=== PATIENT | female | born 1975 | race Asian ===

== ENCOUNTER 2016-08-12 20:33 | Emergency (ER) | payer BC ==
[~2016-08-12] VITALS: Ht 154.9 cm; Wt 67.8 kg
[~2016-08-12 20:33] MED LIST: CHOL100010 PO; LANS30CA12 PO; SERT25TA PO
[2016-08-12 20:49] VITALS: BP 124/78; PULSE 65; TEMP 36.5; O2SAT 97; Ht 154.9 cm; Wt 67.8 kg
[2016-08-12] MEDS ORDERED: FLUV100T12 PO (21:05)
== END 2016-08-12 21:38 | disposition left against medical advice (07) ==
LOC: C.EDB 20:34 → C.EDD 21:38
DX: M79.601 Pain in right arm (principal); W10.9XXA Fall (on) (from) unspecified stairs and steps, initial encounter

== ENCOUNTER → 2016-09-11 | Outpatient (CLI) | payer BC ==
[~2016-09-11] MED LIST changes: -CHOL100010 PO; +FLUV100T12 PO; -SERT25TA PO
== END | disposition home or self-care (01) ==
LOC: C.LABSPEC 17:50
PROVIDERS: ATTEND Physician Assistant
DX: N89.8 Other specified noninflammatory disorders of vagina (principal)

== ENCOUNTER → 2017-04-10 | Outpatient (CLI) | payer BC ==
--- NOTE | 2017-04-10 15:32 | MAMMOGRAPHY REPORT ---
BILATERAL DIGITAL SCREENING MAMMOGRAM TOMOSYNTHESIS WITH CAD: 04/10/2017 CLINICAL HISTORY: Routine screening. Patient has no complaints. TECHNIQUE: Breast tomosynthesis in addition to standard 2D mammography was performed. Current study was also evaluated with a Computer Aided Detection (CAD) system. COMPARISON: Comparison is made to exam dated: 03/27/2016 mammogram - [facility]. BREAST COMPOSITION: The tissue of both breasts is heterogeneously dense, which may obscure small mas ses. FINDINGS: No suspicious masses, calcifications, or areas of architectural distortion are noted in ei ther breast. There has been no significant interval change compared to prior exams. IMPRESSION: ACR BI-RADS CATEGORY 1: NEGATIVE There is no mammographic evidence of malignancy. A 1 year screening mammogram is recommended. The pa tient will receive written notification of the results. Approximately 10% of breast cancers are not detected with mammography. A negative mammographic report should not delay biopsy if a clinically suggestive mass is present. Marya Davidson M.D. ah/:04/10/2017 14:12:43 Cumulative Effects Analyst: Yani WEAVER(Karma)(Audrey)(BD), [facility] letter sent: Normal 1/2 BI-RADS Code: ACR BI-RADS Category 1: Negative
== END | disposition home or self-care (01) ==
LOC: C.MAMM 13:41
PROVIDERS: ATTEND Nurse Practitioner Family
DX: Z12.31 Encounter for screening mammogram for malignant neoplasm of breast (principal)

== ENCOUNTER → 2017-11-27 | Outpatient (CLI) | payer OTHER ==
--- NOTE | 2017-11-27 10:02 | DIAGNOSTIC IMAGING REPORT ---
LEFT ANKLE 3 VIEWS HISTORY: Left ankle pain. COMPARISON: None. FINDINGS: There is no fracture or dislocation. Soft tissues are unremarkable. No radiopaque foreign bodies. IMPRESSION: No fractures. Electronically signed by: Bud Addison M.D. 11/27/2017 10:01 AM Dictated Date/Time: 11/27/2017 9:59 AM
--- NOTE | 2017-11-27 10:05 | DIAGNOSTIC IMAGING REPORT ---
LEG LENGTH STUDY (WHOLE LEG) CLINICAL HISTORY: leg length discrepancy. COMPARISON STUDY: None. FINDINGS: The right lower extremity measured from the superior femoral head through the tibial plafond measures 86.1 cm. The left lower extremity measured from the superior femoral head to the tibial plafond measures 86.3 cm. This is likely due to the left femur which measures approximately 2 mm longer than the right. IMPRESSION: The left lower extremity measures approximately 2 mm longer than the right. Electronically signed by: Bud Addison M.D. 11/27/2017 10:04 AM Dictated Date/Time: 11/27/2017 10:01 AM
== END | disposition home or self-care (01) ==
LOC: C.RADBC 09:21
PROVIDERS: ATTEND Nurse Practitioner Family
DX: M25.572 Pain in left ankle and joints of left foot (principal); R26.89 Other abnormalities of gait and mobility

== ENCOUNTER → 2018-03-19 | Outpatient (CLI) | payer OTHER ==
--- NOTE | 2018-03-19 13:18 | DIAGNOSTIC IMAGING REPORT ---
RIGHT SHOULDER 3 VIEWS CLINICAL HISTORY: Right shoulder pain. FINDINGS: 3 views of the right shoulder are obtained. No prior studies are available for comparison at the time of dictation. The skeletal structures are well mineralized. No fracture or dislocation is seen. The glenohumeral and acromioclavicular joints are preserved. The overlying soft tissues are within normal limits. The imaged right lung parenchyma appears clear. IMPRESSION: There is no radiographic evidence of right shoulder fracture or dislocation. Electronically signed by: Az Lombardo M.D. 03/19/2018 1:17 PM Dictated Date/Time: 03/19/2018 1:16 PM
== END | disposition home or self-care (01) ==
LOC: C.RDSM 12:49
PROVIDERS: ATTEND Family Medicine
DX: M25.511 Pain in right shoulder (principal)

== ENCOUNTER 2023-01-02 17:09 | Inpatient (IN) ==
[2023-01-02 17:57] LABS: Basophils # (auto) 0.02 K/uL (0-0.2); Basophils % (auto) 0.3 %; Eosinophils # (auto) 0.13 K/uL (0-0.50); Eosinophils % (auto) 1.8 %; Hematocrit (blood only) 41.5 % (37.0-47.0); Hemoglobin 13.9 g/dl (12.0-16.0); Immature Granulocytes # (auto) 0.02 K/uL (0.01-0.20); Immature Granulocytes % (auto) 0.3 %; Lymphocytes # (auto) 2.17 K/uL (1.2-3.4); Lymphocytes % (auto) 30.7 %; Mean Corpuscular Hemoglobin 28.8 pg (25.0-34.0); Mean Corpuscular Hgb Conc 33.5 g/dL (32.0-36.0); Mean Corpuscular Volume 86.1 fL (80.0-100.0); Mean Platelet Volume 9.4 fL (9.4-12.4); Monocytes # (auto) 0.56 K/uL (0.11-0.59); Monocytes % (auto) 7.9 %; Neutrophils # (auto) 4.17 K/uL (1.40-6.50); Platelet Count 309 K/uL (130-400); RDW Coefficient of Variation 13.5 % (11.5-14.5); RDW Standard Deviation 42.4 fL (36.4-46.3); Red Blood Count 4.82 M/uL (4.20-5.40); White Blood Count 7.07 K/ul (4.8-10.8)
[2023-01-02 18:11] LABS: Albumin Globulin Ratio 1.4 (0.9-2); Albumin Level 4.5 gm/dl (3.4-5.0); BUN Creatinine Ratio 17.6 (10-20); Bilirubin,Total 0.3 mg/dl (0.2-1.0); Calcium 9.3 mg/dl (8.6-10.3); Creatinine Clr Calc Pharmacy 76.5 ml/min; Est GFR (African American) 94.6 ml/min; Est GFR (Non-African American) 81.6 ml/min; Globulin 3.3 gm/dl (2.5-4.0); Potassium 3.9 mmol/L (3.5-5.1); Total Protein 7.8 gm/dl (6.0-8.3)
[2023-01-02 18:14] LABS: Lithium 0.2 mmol/L (0.6-1.2)
--- NOTE | 2023-01-02 18:15 | Emergency Department Note ---
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 Patient reports that she has been having increasing thoughts of self-harm for the last 2 weeks. She reports no definitive plan of trying to hurt himself. She reports no chance of . No access to firearms. No drugs or alcohol. Patient states she was referred here by her psychiatrist Dr. Curtis Ron. Home Medications Medication Instructions Recorded Confirmed Type fluvoxamine 100 mg tablet 300 mg PO QAM 02/24/19 01/02/23 History lansoprazole 30 mg capsule,delayed 30 mg PO QAM 02/24/19 09/30/21 History release (Prevacid) lamotrigine 100 mg tablet 75 mg PO BID 07/25/20 01/02/23 History (Lamictal) ergocalciferol (vitamin D2) 1,250 1,250 mcg PO WK 05/28/21 09/30/21 History mcg (50,000 unit) capsule (Vitamin D2) fluticasone propionate 50 2 spray intranasal DAILY #15.8 06/12/21 09/30/21 Rx mcg/actuation nasal grams spray,suspension temazepam 15 mg capsule (Restoril) 15 mg PO ONCE 09/30/21 09/30/21 History lithium carbonate 300 mg 300 mg PO DAILY 01/02/23 01/02/23 History tablet,extended release metformin 750 mg tablet,extended 750 mg PO BID 01/02/23 01/02/23 History release 24 hr Allergies Allergy/AdvReac Type Severity Reaction Status Date / Time No Known Drug Allergies Allergy Verified 09/30/21 09:20 Past Med/Surg History Medical History Anxiety and depression Clenching of teeth mouth guard [facility] Depressive disorder Encounter for pre-operative examination GERD (gastroesophageal reflux disease) Headache History of eating disorder History of gestational diabetes History of osteopenia History of seizure "drug induced" 2001; no issues since Iron deficiency anemia hx PTSD (post-traumatic stress disorder) Tinnitus Urge and stress incontinence Surgical History History of ankle surgery History of colonoscopy History of endometrial ablation History of esophagogastroduodenoscopy (EGD) History of surgery Perineoplasty S/P section S/P wisdom tooth extraction Family History Sister Hearing loss Mother Hearing loss Grandmother (Maternal) Hearing loss Grandmother (Paternal) Hearing loss Other No family history of adverse response to anesthesia No family history of bleeding disorder Denies family history of Ovarian cancer Breast cancer Colorectal cancer Uterine cancer Social History Smoking Status: Never smoker Second Hand Exposure: No; Do You Dip or Chew Tobacco: No; Hx Alcohol Use: No Hx Substance Use: No Preferred Language: Bulgarian Communication Ability: Effective Salesperson Floor Coverings Required: No Beliefs That Will Affect Care: None Current Living Situation: Spouse current occupational status: employed current occupation: [employer], PhD Feels Safe at Home: Yes Gender Identity: Female Assistive Devices: Glasses Physical Exam Vital Signs Vital Signs - 24 hr 01/02/23 17:13 01/02/23 18:21 Temperature 36.4 C L 36.7 C Temperature Source Temporal Artery Scan Oral Pulse Rate 83 Pulse Rate [Left Finger] 77 Pulse Rhythm [Left Finger] Regular Pulse Strength [Left Finger] Normal Respiratory Rate 20 16 Respiratory Effort / Characteristics Non-Labored Respiratory Depth Normal Normal Respiratory Pattern Regular Blood Pressure 136/86 Blood Pressure [Right Arm] 140/97 Blood Pressure Mean 102 Blood Pressure Mean [Right Arm] 111 Blood Pressure Position [Right Arm] Sitting Pulse Oximetry 98 99 Oxygen Delivery Method Room Air Room Air Sepsis Recent Fever Within 48 Hours No Sepsis New/Unexplained Change in Mental Status N/A Sepsis Action Taken by Nursing No Action Required Physical Exam GENERAL: oriented to person, place, and time. appears well-developed and well-nourished. HENT: Exam performed. - Head: Normocephalic and atraumatic. EYES: Conjunctivae and EOM are normal. Right eye exhibits no discharge. Left eye exhibits no discharge. No scleral icterus. NECK: Normal range of motion. Neck supple. No JVD present. CV: Normal rate, regular rhythm, normal heart sounds and intact distal pulses. There is no peripheral edema. Palpable radial pulses bue. PULM/CHEST: Effort normal and breath sounds normal. No respiratory distress. No stridor. no wheezes. no rales. ABD: The abdomen is soft. There is no tenderness. NEURO: Motor and sensation grossly intact. SKIN: Skin is warm and dry. He is not diaphoretic. PSYCH: Patient reports suicidal ideation. Course Course 1715: The patient was evaluated in room A8. A complete history and physical exam was performed Cardiac monitoring: An order was placed for continuous cardiac monitoring. The monitor shows a rate of 70 with sinus rhythm interpreted by me 1908: Patient medically cleared. Awaiting psychiatric evaluation and placement. 2039: Patient excepted to 3 S. Medical Decision Making Laboratory Data Attestation: I reviewed the patient's lab results. 01/02/23 17:29 01/02/23 17: Lab Results 01/02/23 01/02/23 01/02/23 Range/Units 17:29 17:29 17:29 WBC 7.07 (4.8-10.8) K/ul RBC 4.82 (4.20-5.40) M/uL Hgb 13.9 (12.0-16.0) g/dl Hct 41.5 (37.0-47.0) % MCV 86.1 (80.0-100.0) fL MCH 28.8 (25.0-34.0) pg MCHC 33.5 (32.0-36.0) g/dL RDW Std Deviation 42.4 (36.4-46.3) fL RDW Coeff of German 13.5 (11.5-14.5) % Plt Count 309 (130-400) K/uL MPV 9.4 (9.4-12.4) fL Immature Gran % (Auto) 0.3 % Neut % (Auto) 59.0 % Lymph % (Auto) 30.7 % Stanton % (Auto) 7.9 % Eos % (Auto) 1.8 % Baso % (Auto) 0.3 % Neut # (Auto) 4.17 (1.40-6.50) K/uL Lymph # (Auto) 2.17 (1.2-3.4) K/uL Stanton # (Auto) 0.56 (0.11-0.59) K/uL Eos # (Auto) 0.13 (0-0.50) K/uL Baso # (Auto) 0.02 (0-0.2) K/uL Immature Gran # (Auto) 0.02 (0.01-0.20) K/uL Sodium 137 (136-145) mmol/L Potassium 3.9 (3.5-5.1) mmol/L Chloride 104 (98-107) mmol/L Carbon Dioxide 27 (21-32) mmol/L Anion Gap 6 (3-11) BUN 15 (6-23) mg/dl Creatinine 0.85 (0.6-1.2) mg/dl Est Cr Clr Drug Dosing 76.5 ml/min Est GFR ( Amer) 94.6 ml/min Est GFR (Non-Af Amer) 81.6 ml/min BUN/Creatinine Ratio 17.6 (10-20) Glucose 119 H (70-99(Fasting)) mg/dl Calcium 9.3 (8.6-10.3) mg/dl Total Bilirubin 0.3 (0.2-1.0) mg/dl AST 18 (13-39) U/L ALT 29 (7-52) U/L Alkaline Phosphatase 67 (34-104) U/L Total Protein 7.8 (6.0-8.3) gm/dl Albumin 4.5 (3.4-5.0) gm/dl Globulin 3.3 (2.5-4.0) gm/dl Albumin/Globulin Ratio 1.4 (0.9-2) TSH 1.308 (0.300-4.500) uIu/ml Salicylates (3.0-30) mg/dl Acetaminophen (10-30) ug/ml [place] (0.6-1.2) mmol/L Ethyl Alcohol mg/dL (<10.0) mg/dl SARS-CoV-2, RNA, NAAT (NEGATIVE) 01/02/23 01/02/23 01/02/23 Range/Units 17:29 17:29 18:17 WBC (4.8-10.8) K/ul RBC (4.20-5.40) M/uL Hgb (12.0-16.0) g/dl Hct (37.0-47.0) % MCV (80.0-100.0) fL MCH (25.0-34.0) pg MCHC (32.0-36.0) g/dL RDW Std Deviation (36.4-46.3) fL RDW Coeff of German (11.5-14.5) % Plt Count (130-400) K/uL MPV (9.4-12.4) fL Immature Gran % (Auto) % Neut % (Auto) % Lymph % (Auto) % Stanton % (Auto) % Eos % (Auto) % Baso % (Auto) % Neut # (Auto) (1.40-6.50) K/uL Lymph # (Auto) (1.2-3.4) K/uL Stanton # (Auto) (0.11-0.59) K/uL Eos # (Auto) (0-0.50) K/uL Baso # (Auto) (0-0.2) K/uL Immature Gran # (Auto) (0.01-0.20) K/uL Sodium (136-145) mmol/L Potassium (3.5-5.1) mmol/L Chloride (98-107) mmol/L Carbon Dioxide (21-32) mmol/L Anion Gap (3-11) BUN (6-23) mg/dl Creatinine (0.6-1.2) mg/dl Est Cr Clr Drug Dosing ml/min Est GFR ( Amer) ml/min Est GFR (Non-Af Amer) ml/min BUN/Creatinine Ratio (10-20) Glucose (70-99(Fasting)) mg/dl Calcium (8.6-10.3) mg/dl Total Bilirubin (0.2-1.0) mg/dl AST (13-39) U/L ALT (7-52) U/L Alkaline Phosphatase (34-104) U/L Total Protein (6.0-8.3) gm/dl Albumin (3.4-5.0) gm/dl Globulin (2.5-4.0) gm/dl Albumin/Globulin Ratio (0.9-2) TSH (0.300-4.500) uIu/ml Salicylates < 3.0 L (3.0-30) mg/dl Acetaminophen < 3 L (10-30) ug/ml [place] 0.2 L (0.6-1.2) mmol/L Ethyl Alcohol mg/dL < 10.0 (<10.0) mg/dl SARS-CoV-2, RNA, NAAT NEGATIVE (NEGATIVE) ECG Data Attestation: I personally reviewed and interpreted this ECG as follows: Indication: + toxicologic Rate (beats per minute): 66 Rhythm: + normal sinus ECG Intervals/blocks: + Normal QRS, + Normal MD and + Normal QT-c ECG ST segments: + Normal ST segments [facility] Narrative 1716: The patient was evaluated in room A8. A complete history and physical exam was performed Cardiac monitoring: An order was placed for continuous cardiac monitoring. The monitor shows a rate of 70 with sinus rhythm interpreted by ma 1909: Patient medically cleared. Awaiting psychiatric evaluation and placement. 2039: Patient excepted to 3 S. Impression & Plan Depression, Anxiety, Post traumatic stress disorder (PTSD) Discharge Plan Visit Data Chief Complaint: Mental Health Evaluation Stated Complaint: MENTAL HEALTH EVAL ED Provider: Dante Kay Discharge Problem: Depression, Anxiety, Post traumatic stress disorder (PTSD) Patient Disposition: Admitted As Inpatient Discharge Instructions Interventions: ED Discharge Assessment Last Done: 01/02/23 20:44
[2023-01-02 18:19] LABS: Acetaminophen < 3 ug/ml (10-30); Salicylate < 3.0 mg/dl (3.0-30)
[2023-01-02 18:31] LABS: Appearance Urine Clear (Clear); Bacteria Urine Automated Negative (Negative); Bilirubin Urine Negative (Negative); Blood Urine 1+ (Negative); Cast Urine Automated 0 /lpf (0-5); Color Urine Yellow; Epithelial Cell Urine Auto >30 /lpf (0-5); Glucose Urine UA Negative (Negative); Ketones Urine Negative (Negative); Leukocyte Esterase Urine Negative (Negative); Nitrite Urine Negative (Negative); Protein Urine Negative (Negative); Specific Gravity Urine 1.015 (1.000-1.030); Urobilinogen Urine Negative (Negative); pH Urine 6.5 (4.5-7.5)
[2023-01-02 19:16] LABS: Amphetamines+Metham, Urine Neg (Neg); Barbiturates, Urine Neg (Neg); Benzodiazepine, Urine Neg (Neg); Cocaine, Urine Neg (Neg); MDMA (Ecstacy), Urine Neg (Neg); Methadone, Urine Neg (Neg); Opiate, Urine Neg (Neg); Phencyclidine, Urine Neg (Neg)
[2023-01-02] MEDS ORDERED: MAGNESIUM HYDROXIDE SUSP 30 ML UDC PO PRN (20:42)
[2023-01-02] MEDS ORDERED: ALUMINUM/MAGNESIUM SUSP 30 ML UDC PO PRN (20:42)
[2023-01-02] MEDS ORDERED: ACETAMINOPHEN 325 MG TAB PO PRN (20:42)
[2023-01-02] MEDS ORDERED: BISMUTH SUBSALICYLATE LIQD 236 ML PO PRN (20:42)
[2023-01-02] MEDS ORDERED: SODIUM CHLORIDE 0.65% NA SOLN 45 ML (OCEAN) PRN (20:42)
[2023-01-02] MEDS ORDERED: hydrOXYzine HCl 25 MG TAB PO PRN (20:42)
[2023-01-02] MEDS ORDERED: lamoTRIgine 25 MG TAB PO SCH ×2 (21:00→22:00)
[2023-01-02] MEDS ORDERED: metFORMIN HCL ER 500 MG TABCR PO SCH (21:15)
[2023-01-02] MEDS ORDERED: TEMAZEPAM 7.5 MG CAPSULE PO ONE (21:21)
[2023-01-02] MEDS: METFORMIN 750 MG PO SCH (22:29)
[2023-01-02] MEDS: hydrOXYzine HCl 25 MG TAB PO PRN (23:58)
[2023-01-03] MEDS ORDERED: lamoTRIgine 25 MG TAB PO SCH ×2 (09:00→21:00)
[2023-01-03] MEDS: METFORMIN 750 MG PO SCH ×2 (09:32→17:22)
--- NOTE | 2023-01-03 10:33 | Electrocardiogram Report ---
Test Reason : Blood Pressure : / mmHG Vent. Rate : 066 BPM Atrial Rate : 066 BPM P-R Int : 154 ms QRS Dur : 084 ms QT Int : 390 ms P-R-T Axes : 052 074 039 degrees QTc Int : 408 ms Normal sinus rhythm Normal ECG When compared with ECG of 19-JUN-2015 20:42, No significant change was found Confirmed by Ritesh Almazan ([id number]) on 01/03/2023 10:33:17 AM Referred By: REFERRED SELF Confirmed By:Ritesh Almazan
[2023-01-03] MEDS: LANSOPRAZOLE 30 MG PO SCH (10:59)
[2023-01-03] MEDS: lamoTRIgine 25 MG TAB PO SCH ×2 (10:59→20:47)
[2023-01-03] MEDS: FLUVOXAMINE 150 MG PO SCH (10:59)
[2023-01-03] MEDS ORDERED: FLUVOXAMINE 150 MG PO SCH (11:00)
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
[2023-01-03 13:38] LABS: Pregnancy Test, Urine Negative (Negative)
[2023-01-03] MEDS: DICLOFENAC SOD 1% GEL 100 GM TUBE EXT SCH (20:46)
[2023-01-03] MEDS ORDERED: LITHIUM CARBONATE SLOW REL 300 MG TAB PO SCH (22:00)
[2023-01-04] MEDS ORDERED: LANSOPRAZOLE 30 MG PO SCH ×2 (09:00)
[2023-01-04] MEDS: lamoTRIgine 25 MG TAB PO SCH ×2 (09:01→21:20)
[2023-01-04] MEDS: DICLOFENAC SOD 1% GEL 100 GM TUBE EXT SCH ×4 (09:03→21:20)
[2023-01-04] MEDS: FLUVOXAMINE 150 MG PO SCH (09:04)
[2023-01-04] MEDS: METFORMIN 750 MG PO SCH ×2 (09:06→17:42)
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
[2023-01-04] MEDS: LITHIUM CARBONATE SLOW REL 300 MG TAB PO SCH (13:15)
[2023-01-04] MEDS: hydrOXYzine HCl 25 MG TAB PO PRN ×2 (21:23→22:42)
[2023-01-05] MEDS: lamoTRIgine 25 MG TAB PO SCH ×2 (08:46→22:12)
[2023-01-05] MEDS: LITHIUM CARBONATE SLOW REL 300 MG TAB PO SCH (08:47)
[2023-01-05] MEDS: LANSOPRAZOLE 30 MG PO SCH (08:47)
[2023-01-05] MEDS: FLUVOXAMINE 150 MG PO SCH (08:49)
[2023-01-05] MEDS: METFORMIN 750 MG PO SCH ×2 (08:50→17:16)
[2023-01-05] MEDS: DICLOFENAC SOD 1% GEL 100 GM TUBE EXT SCH ×4 (08:59→22:16)
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
[2023-01-05] MEDS ORDERED: TEMAZEPAM 15 MG CAPSULE PO PRN (22:49)
[2023-01-05] MEDS ORDERED: TEMAZEPAM 7.5 MG CAPSULE PO PRN (22:55)
[2023-01-06] MEDS: DICLOFENAC SOD 1% GEL 100 GM TUBE EXT SCH (08:41)
[2023-01-06] MEDS: lamoTRIgine 25 MG TAB PO SCH (08:42)
[2023-01-06] MEDS: LITHIUM CARBONATE SLOW REL 300 MG TAB PO SCH (08:43)
[2023-01-06] MEDS: FLUVOXAMINE 150 MG PO SCH (08:44)
[2023-01-06] MEDS: METFORMIN 750 MG PO SCH (08:45)
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
== END 2023-01-06 12:56 | disposition home or self-care (01) | DRG 881 ==
LOC: ED 17:09 → 3S 20:43

== ENCOUNTER 2024-01-12 20:23 | Observation (INO) ==
--- NOTE | 2024-01-12 20:42 | Emergency Department Note ---
Impression & Plan Postoperative abdominal pain, Abdominal pain, Pleural effusion ED Provider Note NAME: KEITH MALDONADO AGE: 48 SEX: F : 1975 ARRIVES VIA: Walk-In INFORMANT: Patient, triage note ED PROVIDER(S): Hieu Cordova MD CHIEF COMPLAINT: Abdominal pain MEDICAL DECISION MAKING: Patient presented due to concern for right upper quadrant pain in the setting of recent hepatic adenoma removal and cholecystectomy. IV was established and blood work was obtained. The patient was ordered IV morphine and IV fluids. NSAIDs initially avoided given recent surgery and unsure as without the patient is okay for this as the patient also was unsure. Patient is a normal white count with hemoglobin 11.5. Platelet count is unremarkable with normal kidney function and electrolytes. AST 1-3 with an alk phos of 137 urinalysis is negative for blood or infection. The patient CT shows postsurgical changes moderate fecal retention no bowel obstruction or free air. Patient does have small right pleural effusion. I did consider PE in this patient but the patient is not tachycardic nor hypoxemic. Do believe the patient has not been taking big deep breaths given the patient's abdominal pain which may be contributory. No evidence of DVT on exam. I did speak with the on-call hospitalist service Dr. Donnelly. I subsequently did speak with the transplant surgery service who performed the procedure at [facility] Dr. Recinos who stated that the patient may be admitted for pain control does not require transfer and does not have any additional recommendations. He did say that the patient may receive NSAIDs. Discussion w/ other healthcare providers: Dr. Donnelly inpatient medicine service Dr. Recinos transplant surgery [facility] Anand Damian PA-C General surgery Prior /Outside records reviewed: None Differential diagnosis: Appendicitis, ovarian cyst, ovarian torsion, ectopic , TOA, PID, diverticulitis, UTI, obstruction, inflammatory bowel disease, renal colic, PUD, pancreatitis, biliary pathology, hernia, volvulus, constipation, as well as other pathologies were considered. Diagnostics, as interpreted by me: ECG: None Cardiac monitoring: An order was placed for continuous cardiac monitoring. The monitor shows a rate of 72 with sinus rhythm. Patient was placed on pulse oximetry Medical decision rules: None Imaging studies: I informally interpreted the patient's CT abdomen pelvis does not show obvious bowel obstruction with formal report to follow. HPI: Patient presents due to concern for right upper quadrant pain. The patient did have a recent hepatic adenoma removal as well as cholecystectomy completed by Dr. Augustin at [facility] on Thursday. Patient states that her pain has been fairly constant nonradiating. The patient states that her pain has not gotten worse but it is not improved. Patient denies any chest pains or shortness of breath but does have pain with taking a big deep breath that she feels it causes worsening abdominal pain. Patient denies any falls or trauma. The patient has taken oxycodone as well as tramadol which might help a little bit but it is brief in nature. Patient denies any vomiting or diarrhea. No blood in the stool. PAST MEDICAL HISTORY: See Below PAST SURGICAL HISTORY: See Below SOCIAL HISTORY: See Below HOME MEDICATIONS: See Below ALLERGIES: See Below VITALS: See Below PHYSICAL EXAMINATION: GENERAL: NAD, non-toxic. Wearing glasses. EYE EXAM: Normal conjunctiva. PERRL, no anisocoria and EOM's grossly intact w/o pain. OROPHARYNX: Moist mucus membranes, grossly normal dentition. NECK: Trachea midline, no stridor. Supple, no nuchal rigidity, no adenopathy, non-tender. No signs of meningismus. FROM of the neck with good chin to chest and neck extension. LUNGS: Clear to auscultation. Normal chest wall mechanics. HEART: NSR, no MRG. ABDOMEN: Abdomen soft, right upper quadrant pain, midline incisional site just superior to the umbilicus running approximately 5 to 6 cm, no surrounding erythema fluctuance or drainage, no masses, no rebound or guarding. BACK: No CVA TTP. SKIN: No rashes and no bruising. UPPER EXTREMITIES: Upper extremities are grossly normal. LOWER EXTREMITIES: Grossly normal, no edema. NEURO EXAM: A&O x3, cranial nerves II-XII grossly intact, normal speech, moves all 4 extremities. Past Med/Surg History Problem List (Updated 01/13/24 @ 23:26 by Hieu Cordova MD) Pleural effusion (Acute) Abdominal pain (Acute) Impaired fasting glucose Postoperative abdominal pain (Acute) Liver lesion, right lobe History of arthroscopic surgery of shoulder Operation Date: 06/03/23 13:30 Procedure: Left shoulder arthroscopy, posterior inferior labral repair, subacromial decompression, arthroscopic distal clavicle excision, open subpectoral biceps tenodesis GERD (gastroesophageal reflux disease) (Chronic) Anorexia (Chronic) [place] teeth extracted (Chronic) Dehydration (Acute) Dyspnea on exertion (Acute) Asymmetrical left sensorineural hearing loss Bilateral tinnitus Vitamin D deficiency (Acute) Vaginal odor (Acute) Travel advice encounter (Acute) Need for prophylactic antibiotic (Acute) Need for immunization against typhoid (Acute) IUD check up (Acute) Encounter for routine gynecological examination (Acute) Encounter for IUD removal (Acute) Encounter for IUD insertion (Acute) Snoring Sleep apnea Hypertrophy of both inferior nasal turbinates Sprain of left acromioclavicular joint Rotator cuff tear, left Shoulder joint contracture Impingement of right shoulder Depression (Acute) Anxiety (Acute) Post traumatic stress disorder (PTSD) (Acute) Obsessive compulsive disorder Eating disorder, unspecified Crepitus of left shoulder joint Arthrosis of left acromioclavicular joint SLAP (superior labrum from anterior to posterior) tear Supraspinatus tendon tear Encounter for pre-operative examination Medical History Sleep apnea CPAP at night Pre-diabetes History of COVID-19 2020 mild symptoms History of eating disorder History of osteopenia last bone density normal GERD (gastroesophageal reflux disease) History of gestational diabetes Clenching of teeth mouth guard HS PTSD (post-traumatic stress disorder) Anxiety and depression History of seizure "drug induced" 2001; no issues since Urge and stress incontinence Iron deficiency anemia hx resolved after endo ablation Tinnitus Headache Depressive disorder Surgical History History of nasal surgery History of endometrial ablation over 5 years History of esophagogastroduodenoscopy (EGD) History of colonoscopy 3years ago S/P section S/P wisdom tooth extraction History of ankle surgery right History of surgery Perineoplasty Family History Sister Hearing loss Mother Hearing loss Grandmother (Maternal) Hearing loss Grandmother (Paternal) Hearing loss Other No family history of adverse response to anesthesia No family history of bleeding disorder Denies family history of Ovarian cancer Breast cancer Colorectal cancer Uterine cancer Social History Smoking Status: Never smoker Second Hand Exposure: No; Do You Dip or Chew Tobacco: No; Hx Alcohol Use: No Hx Substance Use: No Preferred Language: Pashto Communication Ability: Effective Highway Traffic Control Technician Required: No Beliefs That Will Affect Care: None Current Living Situation: Spouse Current Living Situation Comment: current occupational status: employed current occupation: [employer]-, PhD Feels Safe at Home: Yes Gender Identity: Female Assistive Devices: Glasses, Hearing Aid - Bilateral and Oxygen - at Night Allergies Allergies Allergy/AdvReac Type Severity Reaction Status Date / Time No Known Allergies Allergy Verified 01/12/24 22:07 Home Meds Home Medications Medication Instructions Recorded Confirmed lansoprazole 30 mg capsule,delayed 30 mg PO Q OTHER DAY 02/24/19 01/12/24 release (Prevacid) docusate sodium 100 mg capsule 100 mg PO BID 01/12/24 01/12/24 fluvoxamine 100 mg tablet See Rx Instructions .Route .COMPLEX 01/12/24 01/12/24 lamotrigine 25 mg tablet 25 mg PO QAM 01/12/24 01/12/24 lidocaine 4 % topical patch 1 patch topical DAILY 01/12/24 01/12/24 (Aspercreme (lidocaine)) metformin 500 mg tablet,extended 1,000 mg PO BID 01/12/24 01/12/24 release 24 hr oxycodone 5 mg tablet 5 mg PO Q4H PRN Pain 01/12/24 01/12/24 sennosides 8.6 mg tablet (Senna 17.2 mg PO QAM 01/12/24 01/12/24 Laxative) tramadol 50 mg tablet 50 mg PO Q6H PRN Pain 01/12/24 01/12/24 Results & Data (ED) Vital Signs Vital Signs - 24 hr 01/12/24 23:30 Pulse Rate 78 Respiratory Rate 17 Blood Pressure 129/74 Blood Pressure Mean 92 Home Medications Current Medication List: was personally reviewed by me Laboratory Data Attestation: I reviewed the patient's lab results. 01/13/24 06:57 01/13/24 06:57 Lab Results 01/12/24 01/12/24 01/12/24 Range/Units 20:55 20:59 23:15 WBC 7.34 (4.8-10.8) K/ul RBC 4.18 L (4.20-5.40) M/uL Hgb 11.5 L (12.0-16.0) g/dl POC Hgb 11.6 L (12.0-16.0) g/dl Hct 35.3 L (37.0-47.0) % POC Hct 34 L (37-47) % MCV 84.4 (80.0-100.0) fL MCH 27.5 (25.0-34.0) pg MCHC 32.6 (32.0-36.0) g/dL RDW Std Deviation 42.8 (36.4-46.3) fL RDW Coeff of German 13.9 (11.5-14.5) % Plt Count 331 (130-400) K/uL MPV 9.1 L (9.4-12.4) fL Immature Gran % (Auto) 0.3 % Neut % (Auto) 53.4 % Lymph % (Auto) 31.7 % [place] % (Auto) 10.2 % Eos % (Auto) 4.0 % Baso % (Auto) 0.4 % Neut # (Auto) 3.92 (1.40-6.50) K/uL Lymph # (Auto) 2.33 (1.20-3.40) K/uL [place] # (Auto) 0.75 H (0.11-0.59) K/uL Eos # (Auto) 0.29 (0.00-0.50) K/uL Baso # (Auto) 0.03 (0.00-0.20) K/uL Immature Gran # (Auto) 0.02 (0.01-0.20) K/uL POC Sodium 138 (135-144) mmol/L Sodium 137 (136-145) mmol/L POC Potassium 4.3 (3.3-5.0) mmol/L Potassium 4.4 (3.5-5.1) mmol/L POC Chloride 102 (101-112) mmol/L Chloride 103 (98-107) mmol/L Carbon Dioxide 29 (21-32) mmol/L POC Total CO2 30 (24-31) mmol/L Anion Gap 5 (3-11) POC Anion Gap 12.0 L (16-25) mmol/L POC BUN 9 (7-18) mg/dl BUN 10 (6-23) mg/dl Creatinine 0.83 (0.6-1.2) mg/dl POC Creatinine 0.9 (0.6-1.3) mg/dl Est Cr Clr Drug Dosing 76.9 ml/min Est GFR ( Amer) 96.6 ml/min Est GFR (Non-Af Amer) 83.4 ml/min BUN/Creatinine Ratio 12.0 (10-20) Glucose 106 H (70-99(Fasting)) mg/dl POC Glucose (other) 106 H (70-99) mg/dl Calcium 9.2 (8.6-10.3) mg/dl POC Ioniz Calcium Derrick 1.19 (1.12-1.32) mmol/l Total Bilirubin 0.3 (0.2-1.0) mg/dl AST 32 (13-39) U/L ALT 103 H (7-52) U/L Alkaline Phosphatase 137 H (34-104) U/L Total Protein 7.4 (6.0-8.3) gm/dl Albumin 3.8 (3.4-5.0) gm/dl Globulin 3.6 (2.5-4.0) gm/dl Albumin/Globulin Ratio 1.1 (0.9-2) Lipase 28 (11-82) U/L Urine Color Yellow Urine Appearance Clear (Clear) Urine pH 8.0 H (4.5-7.5) Ur Specific [place] 1.029 (1.000-1.030) Urine Protein Negative (Negative) Urine Glucose (UA) Negative (Negative) Urine Ketones Negative (Negative) Urine Blood Negative (Negative) Urine Nitrite Negative (Negative) Urine Bilirubin Negative (Negative) Urine Urobilinogen Negative (Negative) Ur Leukocyte Esterase Negative (Negative) Administered Medications Discontinued Medications Acetaminophen (Acetaminophen 325 Mg Tab) 650 mg PO TID LITZY Stop: 02/12/24 13:59 Last Admin: 01/13/24 13:55 Dose: 650 mg Documented By: MS Acetaminophen (Acetaminophen 500 Mg Tab) 500 mg PO ONE ONE Stop: 01/13/24 12:08 Last Admin: 01/13/24 12:24 Dose: 500 mg Documented By: MS Diazepam (Diazepam 5 Mg Tablet) 5 mg PO NOW ONE Stop: 01/13/24 09:21 Last Admin: 01/13/24 10:41 Dose: 5 mg Documented By: MS Docusate Sodium (Docusate Sodium 100 Mg Cap) 100 mg PO BID LITZY Stop: 02/12/24 08:59 Last Admin: 01/13/24 08:52 Dose: 100 mg Documented By: Fentanyl Citrate (Fentanyl Citrate Pf 100 Mcg/2 Ml Vial) 75 mcg IV NOW STA Stop: 01/12/24 23:05 Last Admin: 01/12/24 23:09 Dose: 75 mcg Documented By: ANDREINA Fentanyl Citrate (Fentanyl Citrate Pf 100 Mcg/2 Ml Vial) 75 mcg IV Q1H PRN PRN Reason: Pain (7,8,9,10) Stop: 01/27/24 00:44 Last Admin: 01/13/24 02:15 Dose: 75 mcg Documented By: KIYA Fluvoxamine Maleate (Fluvoxamine Maleate 50 Mg Tab) 200 mg PO QAM LITZY Stop: 02/12/24 08:59 Last Admin: 01/13/24 08:51 Dose: 200 mg Documented By: Hydromorphone HCl (Hydromorphone Inj 0.5 Mg/0.5 Ml Syr) 0.5 mg IV NOW STA Stop: 01/12/24 22:12 Last Admin: 01/12/24 22:17 Dose: 0.5 mg Documented By: [facility] Sodium Chloride (Nss) 1,000 mls @ 999 mls/hr IV .Q1H1M STA Stop: 01/12/24 21:52 Last Infusion: 01/12/24 22:00 Dose: Infused Documented By: Admin: 01/12/24 20:59 Dose: 999 mls/hr Documented By: [facility] Acetaminophen (Ofirmev) 1,000 mg in 100 mls @ 400 mls/hr IV NOW STA Stop: 01/12/24 23:18 Last Infusion: 01/12/24 23:34 Dose: Infused Documented By: Admin: 01/12/24 23:09 Dose: 400 mls/hr Documented By: ANDREINA Sodium Chloride (Nss) 1,000 mls @ 100 mls/hr IV .Q10H LITZY Stop: 01/13/24 20:44 Last Infusion: 01/13/24 12:25 Dose: Infused Documented By: Admin: 01/13/24 10:45 Dose: 100 mls/hr Documented By: Infusion: 01/13/24 10:45 Dose: Infused Documented By: Admin: 01/13/24 01:48 Dose: 100 mls/hr Documented By: KIYA Pantoprazole Sodium 40 mg/ (Syringe) 10 mls @ 5 mls[facility] Stop: 02/12/24 01:49 Last Admin: 01/13/24 08:53 Dose: 5 mls/min Documented By: Admin: 01/13/24 02:03 Dose: 5 mls/min Documented By: KIYA Ioversol (Optiray 320 100ml) 94 ml IV ONCE ONE Stop: 01/12/24 21:29 Last Admin: 01/12/24 21:29 Dose: 94 ml Documented By: MATHEW Ketorolac Tromethamine (Ketorolac Tromethamine 15 Mg/Ml Vial) 10 mg IV NOW ONE Stop: 01/12/24 23:41 Last Admin: 01/12/24 23:49 Dose: 10 mg Documented By: ANDREINA Ketorolac Tromethamine (Ketorolac Tromethamine 15 Mg/Ml Vial) 15 mg IV Q6H PRN PRN Reason: pain (4,5,6) Stop: 01/18/24 00:44 Last Admin: 01/13/24 06:04 Dose: 15 mg Documented By: KIYA Ketorolac Tromethamine (Ketorolac Tromethamine 15 Mg/Ml Vial) 15 mg IV NOW ONE Stop: 01/13/24 12:08 Last Admin: 01/13/24 12:25 Dose: 15 mg Documented By: Lamotrigine (Lamotrigine 25 Mg Tab) 25 mg PO [facility]; Protocol Stop: 02/12/24 08:59 Last Admin: 01/13/24 08:52 Dose: 25 mg Documented By: Lidocaine (Lidocaine 5% 1 Patch) 1 patch TD DAILY [facility] Stop: 02/12/24 08:59 Last Admin: 01/13/24 08:53 Dose: Not Given Documented By: Morphine Sulfate (Morphine Sulfate 4 Mg/Ml 1 Ml Carp\\Vial) 6 mg IV NOW STA Stop: 01/12/24 20:53 Last Admin: 01/12/24 20:59 Dose: 6 mg Documented By: JAZZ Oxycodone HCl (Oxycodone Hcl Ir 5 Mg Tab (Immediate Release)) 5 mg PO Q2H PRN PRN Reason: Pain 4-7/10 Stop: 01/27/24 09:19 Last Admin: 01/13/24 16:07 Dose: 5 mg Documented By: LIZ Polyethylene Glycol (Polyethylene (Miralax) 17 Gm Pack) 34 gm PO BID [facility] Stop: 02/12/24 08:59 Last Admin: 01/13/24 10:43 Dose: 34 gm Documented By: Sennosides (Senna 8.6 Mg Tab) 17.2 mg PO QAM [facility] Stop: 02/12/24 08:59 Last Admin: 01/13/24 08:52 Dose: 17.2 mg Documented By: Imaging Data Radiologist's Impression: Abdomen/Pelvis CT 01/12/24 20:52 Exam(s): CT ABDOMEN + PELVIS With Contrast IV Amt: 90 ML OPTIRAY 320 EXAM: CT Abdomen and Pelvis With Intravenous Contrast CLINICAL HISTORY: Reason for exam: RUQ pain; recent hepatic adenoma/indy procedure. TECHNIQUE: Axial computed tomography images of the abdomen and pelvis with intravenous contrast. Automated exposure control was utilized for the study. A dose lowering technique was utilized adhering to the principles of ALARA. CONTRAST: Patient received 90 ML OPTIRAY 320 of IV contrast COMPARISON: CT abdomen pelvis August 25, 2023. FINDINGS: Lung bases: Scarring/atelectasis of the RIGHT lung base. Small RIGHT pleural effusion. ABDOMEN: Liver: Unremarkable. No mass. Gallbladder and bile ducts: Cholecystectomy and postsurgical changes in the RIGHT hepatic lobe (segment 6), correlate with surgical history. No ductal dilation. Pancreas: Unremarkable. No mass. No ductal dilation. Spleen: Unremarkable. No splenomegaly. Adrenals: Unremarkable. No mass. Kidneys and ureters: Unremarkable. No hydronephrosis or delayed nephrogram. Stomach and bowel: Moderate fecal retention, correlate for constipation. No bowel obstruction. No free air. No mucosal thickening. PELVIS: Appendix: No findings to suggest acute appendicitis. Bladder: Unremarkable. No mass. Reproductive: Unremarkable as visualized. ABDOMEN and PELVIS: Intraperitoneal space: See above. Bones/joints: No acute fracture. No dislocation. Soft tissues: Unremarkable. Vasculature: Unremarkable. No abdominal aortic aneurysm. Lymph nodes: Unremarkable. No enlarged lymph nodes. IMPRESSION: 1. Cholecystectomy and postsurgical changes in the RIGHT hepatic lobe (segment 6), correlate with surgical history. 2. Moderate fecal retention, correlate for constipation. No bowel obstruction. No free air. 3. Scarring/atelectasis of the RIGHT lung base. Small RIGHT pleural effusion. Electronically signed by: Gee Garcia MD 01/12/24 22:52 PM Discharge Plan Visit Data Chief Complaint: Abdominal Pain Stated Complaint: RECENT SURG, RT UPPER QUADRANT PAIN/INCISION SITE ED Provider: Hieu Cordova Discharge Problem: Postoperative abdominal pain, Abdominal pain, Pleural effusion Patient Disposition: Admitted As Inpatient Discharge Instructions Interventions: ED Discharge Assessment Last Done: 01/13/24 00:30 Discharge Problem: Abdominal pain Qualifiers: Abdominal location: right upper quadrant Qualified Code(s): R10.11 - Right upper quadrant pain
[2024-01-12] MEDS: MoRPHine SULFATE 4 MG/ML 1 ML CARP\\VIAL IV STA (20:59)
[2024-01-12] MEDS: SODIUM CHLORIDE 0.9% 1,000 ML IV STA (20:59)
[2024-01-12 21:26] LABS: Albumin Globulin Ratio 1.1 (0.9-2); Albumin Level 3.8 gm/dl (3.4-5.0); Bilirubin,Total 0.3 mg/dl (0.2-1.0); Calcium 9.2 mg/dl (8.6-10.3); Creatinine Clr Calc Pharmacy 76.9 ml/min; Est GFR (African American) 96.6 ml/min; Est GFR (Non-African American) 83.4 ml/min; Globulin 3.6 gm/dl (2.5-4.0); Potassium 4.4 mmol/L (3.5-5.1); Total Protein 7.4 gm/dl (6.0-8.3)
[2024-01-12] MEDS: OPTIRAY 320 100ml IV ONE (21:29)
[2024-01-12 21:44] LABS: Basophils # (auto) 0.03 K/uL (0.00-0.20); Basophils % (auto) 0.4 %; Eosinophils # (auto) 0.29 K/uL (0.00-0.50); Hematocrit (blood only) 35.3 % (37.0-47.0); Hemoglobin 11.5 g/dl (12.0-16.0); Immature Granulocytes # (auto) 0.02 K/uL (0.01-0.20); Immature Granulocytes % (auto) 0.3 %; Lymphocytes # (auto) 2.33 K/uL (1.20-3.40); Lymphocytes % (auto) 31.7 %; Mean Corpuscular Hemoglobin 27.5 pg (25.0-34.0); Mean Corpuscular Hgb Conc 32.6 g/dL (32.0-36.0); Mean Corpuscular Volume 84.4 fL (80.0-100.0); Mean Platelet Volume 9.1 fL (9.4-12.4); Monocytes # (auto) 0.75 K/uL (0.11-0.59); Monocytes % (auto) 10.2 %; Neutrophils # (auto) 3.92 K/uL (1.40-6.50); Neutrophils % (auto) 53.4 %; Platelet Count 331 K/uL (130-400); RDW Coefficient of Variation 13.9 % (11.5-14.5); RDW Standard Deviation 42.8 fL (36.4-46.3); Red Blood Count 4.18 M/uL (4.20-5.40); White Blood Count 7.34 K/ul (4.8-10.8)
[2024-01-12] MEDS: HYDROmorphone INJ 0.5 MG/0.5 ML SYR IV STA (22:17)
--- NOTE | 2024-01-12 22:53 | CT Scan Report ---
Exam(s): CT ABDOMEN + PELVIS With Contrast IV Amt: 90 ML OPTIRAY 320 EXAM: CT Abdomen and Pelvis With Intravenous Contrast CLINICAL HISTORY: Reason for exam: RUQ pain; recent hepatic adenoma/indy procedure. TECHNIQUE: Axial computed tomography images of the abdomen and pelvis with intravenous contrast. Automated exposure control was utilized for the study. A dose lowering technique was utilized adhering to the principles of ALARA. CONTRAST: Patient received 90 ML OPTIRAY 320 of IV contrast COMPARISON: CT abdomen pelvis August 25, 2023. FINDINGS: Lung bases: Scarring/atelectasis of the RIGHT lung base. Small RIGHT pleural effusion. ABDOMEN: Liver: Unremarkable. No mass. Gallbladder and bile ducts: Cholecystectomy and postsurgical changes in the RIGHT hepatic lobe (segment 6), correlate with surgical history. No ductal dilation. Pancreas: Unremarkable. No mass. No ductal dilation. Spleen: Unremarkable. No splenomegaly. Adrenals: Unremarkable. No mass. Kidneys and ureters: Unremarkable. No hydronephrosis or delayed nephrogram. Stomach and bowel: Moderate fecal retention, correlate for constipation. No bowel obstruction. No free air. No mucosal thickening. PELVIS: Appendix: No findings to suggest acute appendicitis. Bladder: Unremarkable. No mass. Reproductive: Unremarkable as visualized. ABDOMEN and PELVIS: Intraperitoneal space: See above. Bones/joints: No acute fracture. No dislocation. Soft tissues: Unremarkable. Vasculature: Unremarkable. No abdominal aortic aneurysm. Lymph nodes: Unremarkable. No enlarged lymph nodes. IMPRESSION: 1. Cholecystectomy and postsurgical changes in the RIGHT hepatic lobe (segment 6), correlate with surgical history. 2. Moderate fecal retention, correlate for constipation. No bowel obstruction. No free air. 3. Scarring/atelectasis of the RIGHT lung base. Small RIGHT pleural effusion. Electronically signed by: Gee Garcia MD 01/12/24 22:52 PM
[2024-01-12] MEDS: ACETAMINOPHEN 1,000 MG/100 ML VIAL IV STA (23:09)
[2024-01-12] MEDS: fentaNYL citrate PF 100 MCG/2 ML VIAL IV STA (23:09)
[2024-01-12 23:28] LABS: Appearance Urine Clear (Clear); Bilirubin Urine Negative (Negative); Blood Urine Negative (Negative); Color Urine Yellow; Glucose Urine UA Negative (Negative); Ketones Urine Negative (Negative); Leukocyte Esterase Urine Negative (Negative); Nitrite Urine Negative (Negative); Protein Urine Negative (Negative); Specific Gravity Urine 1.029 (1.000-1.030); Urobilinogen Urine Negative (Negative)
--- NOTE | 2024-01-12 23:31 | History & Physical Report ---
Date of Service January 12, 2024 Assessment & Plan (1) Postoperative abdominal pain: Plan: Intractable post-operative pain. CT with post-operative changes and cholecystectomy. Dr. Cordova did discuss with the surgical team at [facility] in [place] - no procedure or intervention is required, focus is pain control. NSAIDs acceptable. Continued home bowel regimen. Added miralax as needed. Pain regimen: Toradol 15 mg Q6H PRN Fentanyl 75 mcg Q2H PRN Surg on board - appreciate recs Continue gentle rehydration Do not anticipate surgical intervention - regular diet ordered (2) GERD (gastroesophageal reflux disease): Plan: Protonix IV while inpatient. (3) Sleep apnea: Plan: Home CPAP (4) Depression: Plan: Continue home fluvoxamine and lamotrigine. (5) Anxiety: Plan: See above (6) Post traumatic stress disorder (PTSD): Plan: See above (7) Obsessive compulsive disorder: Plan: See above (8) Liver lesion, right lobe: Plan: s/p resection (9) Impaired fasting glucose: Plan: Last HbA1c 6.3%. On metformin at home. Hold while inpatient. Plan Code status: full DVT ppx: low risk, SCDs, ambulation FENGI: IVF @ 100 mL/hr, regular diet as tolerated Dispo: PCU/tele History of Present Illness Chief Complaint: pain Primary Care Provider: LATRICE Skinner 48 y/o female with a PMHx of disordered eating, PTSD, anxiety/depression, hepatic adenoma with recent surgical resection presents with intractable RUQ abdominal pain. Patient with recent procedure a [facility] 01/07 with cholecystectomy and resection of hepatic adenoma. Of note the cholecystectomy was needed for better visualization of the adenoma. Patient with severe pain that started today. Prior to this had been eating/drinking/peeing/pooping without issue. CT significant for postsurgical changes in the right hepatic lobe and cholecystectomy. Case was discussed with surgery HALEY Damian. He recommended ED physician reach out to the performing institution. Of note, the treating emergency room physician did discuss with the surgical team at [facility] in [place], [place] where patient had her surgery. They have noted to him that no procedure or intervention is required and patient merely needs pain control. They have also noted that the use of NSAIDs is acceptable in her care. Upon my interview patient significant improved. No nausea, CP, SOB, fevers, chills, headache. Does have noisy breathing, which she attributes to "atelectasis". Allergies Allergy/AdvReac Type Severity Reaction Status Date / Time No Known Allergies Allergy Verified 01/12/24 22:07 Home Medications Medication Instructions Recorded Confirmed Type lansoprazole 30 mg capsule,delayed 30 mg PO Q OTHER DAY 02/24/19 01/12/24 History release (Prevacid) docusate sodium 100 mg capsule 100 mg PO BID 01/12/24 01/12/24 History fluvoxamine 100 mg tablet See Rx Instructions .Route .COMPLEX 01/12/24 01/12/24 History lamotrigine 25 mg tablet 25 mg PO QAM 01/12/24 01/12/24 History lidocaine 4 % topical patch 1 patch topical DAILY 01/12/24 01/12/24 History (Aspercreme (lidocaine)) metformin 500 mg tablet,extended 1,000 mg PO BID 01/12/24 01/12/24 History release 24 hr oxycodone 5 mg tablet 5 mg PO Q4H PRN Pain 01/12/24 01/12/24 History sennosides 8.6 mg tablet (Senna 17.2 mg PO QAM 01/12/24 01/12/24 History Laxative) tramadol 50 mg tablet 50 mg PO Q6H PRN Pain 01/12/24 01/12/24 History Past Med/Surg History Problem List (Updated 01/13/24 @ 00:31 by Alexandra Barber MD) Impaired fasting glucose Postoperative abdominal pain Liver lesion, right lobe History of arthroscopic surgery of shoulder Operation Date: 06/03/23 13:30 Procedure: Left shoulder arthroscopy, posterior inferior labral repair, subacromial decompression, arthroscopic distal clavicle excision, open subpectoral biceps tenodesis GERD (gastroesophageal reflux disease) (Chronic) Anorexia (Chronic) Elsa teeth extracted (Chronic) Dehydration (Acute) Dyspnea on exertion (Acute) Asymmetrical left sensorineural hearing loss Bilateral tinnitus Vitamin D deficiency (Acute) Vaginal odor (Acute) Travel advice encounter (Acute) Need for prophylactic antibiotic (Acute) Need for immunization against typhoid (Acute) IUD check up (Acute) Encounter for routine gynecological examination (Acute) Encounter for IUD removal (Acute) Encounter for IUD insertion (Acute) Snoring Sleep apnea Hypertrophy of both inferior nasal turbinates Sprain of left acromioclavicular joint Rotator cuff tear, left Shoulder joint contracture Impingement of right shoulder Depression (Acute) Anxiety (Acute) Post traumatic stress disorder (PTSD) (Acute) Obsessive compulsive disorder Eating disorder, unspecified Crepitus of left shoulder joint Arthrosis of left acromioclavicular joint SLAP (superior labrum from anterior to posterior) tear Supraspinatus tendon tear Encounter for pre-operative examination Medical History Sleep apnea CPAP at night Pre-diabetes History of COVID-19 2020 mild symptoms History of eating disorder History of osteopenia last bone density normal GERD (gastroesophageal reflux disease) History of gestational diabetes Clenching of teeth mouth guard qHS PTSD (post-traumatic stress disorder) Anxiety and depression History of seizure "drug induced" 2001; no issues since Urge and stress incontinence Iron deficiency anemia hx resolved after endo ablation Tinnitus Headache Depressive disorder Surgical History History of nasal surgery History of endometrial ablation over 5 years History of esophagogastroduodenoscopy (EGD) History of colonoscopy 3years ago S/P section S/P wisdom tooth extraction History of ankle surgery right History of surgery Perineoplasty Family History Sister Hearing loss Mother Hearing loss Grandmother (Maternal) Hearing loss Grandmother (Paternal) Hearing loss Other No family history of adverse response to anesthesia No family history of bleeding disorder Denies family history of Ovarian cancer Breast cancer Colorectal cancer Uterine cancer Social History Smoking Status: Never smoker Second Hand Exposure: No; Do You Dip or Chew Tobacco: No; Hx Alcohol Use: No Hx Substance Use: No Preferred Language: Thai Communication Ability: Effective Life Claims Examiner Required: No Beliefs That Will Affect Care: None Current Living Situation: Spouse Current Living Situation Comment: current occupational status: employed current occupation: [employer], PhD Other Information That Helps Us Care for You: No Feels Safe at Home: Yes Safety Concerns: Feels Safe At This Time Gender Identity: Female Assistive Devices: Glasses, Hearing Aid - Bilateral and Oxygen - at Night Assistive Devices Comment: BL hearfing aids not with patient upon admit Review of Systems Review of Systems: See HPI Physical Exam Physical Exam: Gen: well appearing patient in NAD HEENT: AT NC MMM Resp: no increased work of breathing CV: RRR no m/r/g clinically well perfused Abd: +BS, soft, non-distended MSK: no obvious deformities Skin: no rashes or bruising Neuro: alert and oriented Psych: appropriate mood and affect Results & Data Results & Data Vital Signs (Past 12 Hours) Vital Signs Temp Pulse Resp BP Pulse Ox O2 Del Method 01/12/24 22:33 78 16 148/83 H 96 Room Air 01/12/24 21:51 73 28 H 124/98 96 Room Air 01/12/24 21:12 76 14 133/81 96 Room Air 01/12/24 21:06 88 01/12/24 20:29 36.5 C 81 20 144/87 H 100 Room Air Diagnostic Findings Abdomen/Pelvis CT 01/12/24 20:52 FINDINGS: Lung bases: Scarring/atelectasis of the RIGHT lung base. Small RIGHT pleural effusion. ABDOMEN: Liver: Unremarkable. No mass. Gallbladder and bile ducts: Cholecystectomy and postsurgical changes in the RIGHT hepatic lobe (segment 6), correlate with surgical history. No ductal dilation. Pancreas: Unremarkable. No mass. No ductal dilation. Spleen: Unremarkable. No splenomegaly. Adrenals: Unremarkable. No mass. Kidneys and ureters: Unremarkable. No hydronephrosis or delayed nephrogram. Stomach and bowel: Moderate fecal retention, correlate for constipation. No bowel obstruction. No free air. No mucosal thickening. PELVIS: Appendix: No findings to suggest acute appendicitis. Bladder: Unremarkable. No mass. Reproductive: Unremarkable as visualized. ABDOMEN and PELVIS: Intraperitoneal space: See above. Bones/joints: No acute fracture. No dislocation. Soft tissues: Unremarkable. Vasculature: Unremarkable. No abdominal aortic aneurysm. Lymph nodes: Unremarkable. No enlarged lymph nodes. IMPRESSION: 1. Cholecystectomy and postsurgical changes in the RIGHT hepatic lobe (segment 6), correlate with surgical history. 2. Moderate fecal retention, correlate for constipation. No bowel obstruction. No free air. 3. Scarring/atelectasis of the RIGHT lung base. Small RIGHT pleural effusion. Supervising Physician Co-Signing Physician Notes Patient seen and examined in room 237, chart reviewed. Ongoing abdominal pain following cholecystectomy and removal of hepatic adenoma. Surgery performed on 01/08/24. Severe ongoing pain. Patient reports similar response to pain after her liver biopsy - was told that she would have discomfort for a day or two but ended up having pain for 5+ days. Non-toxic on exam. Abdominal binder in place - abdomen is soft but diffusely tender. Surgical wounds appear well approximated, no bleeding/drainage/erythema or dehiscence. Remainder of exam is unremarkable Labs and images reviewed. CT with no acute post-operative complications Assessment/Plan -Pain control with Toradol and Fentanyl -General Surgery assessment appreciated -Remainder as above Resident Activity Tracking Resident Involvement: Resident Care Provided Care Provided: Adult [facility] Medicine
[2024-01-12] MEDS: KETOROLAC TROMETHAMINE 15 MG/ML VIAL IV ONE (23:49)
--- NOTE | 2024-01-12 23:50 | Surgery Consultation ---
Date of Consultation January 12, 2024 Assessment & Plan (1) Postoperative abdominal pain: I discussed with the treating emergency room physician and he feels that the patient requires admission for pain control. The patient is being admitted on the hospitalist service. From surgical perspective we recommend the following: On the patient's imaging there does not appear to be any findings that would necessitate any surgical intervention at this time Would recommend providing analgesics Would recommend providing antiemetics as needed Would recommend gentle hydration with IV fluids Would recommending repeat labs in the morning, particularly as patient has an elevation of an ALT and alkaline phosphatase levels and these should be repeated to make sure there not worsening The patient will be be reassessed in the morning to see if she has adequate pain control and once this is achieved consideration of discharge can be entertained Of note, the treating emergency room physician did discuss with the surgical team at [facility] in [place], [place] where patient had her surgery. They have noted to him that no procedure or intervention is required and patient merely needs pain control. They have also noted that the use of NSAIDs is acceptable in her care. Additional recommendations be forthcoming based on her clinical course as unfolds History of Present Illness Reason for Consultation: Postoperative abdominal pain History of Present Illness This is a 48-year-old female who presented to the emergency department secondary to abdominal pain. Patient notes that on January 07 of this year she underwent surgical procedure at [facility] in [place], [place]. At this time the patient had a hepatic adenoma removed. The patient notes that the adenoma had measured approximately 4 x 5 cm prior to removal. She notes that the adenoma was removed because it has been followed for some time and there was concern of the size and therefore removal was recommended. During this procedure she also underwent a cholecystectomy. She does report that the procedure was hand-assisted and not an entirely open procedure. Patient reports that she was in the hospital 2 nights and was discharged home. The patient notes that since being home her bowels have been moving. She notes that she has been tolerating solid food without any nausea or vomiting. She has denied any fevers, shakes, or chills. She notes that she has not had any difficulties urinating. She denies any chest pain. She presented to the emergency department because she has continuous abdominal pain that is greatest in the right upper quadrant and to a lesser degree in midline where her midline incision is. She does note that the pain seems to be worse with taking deep breaths. She does not report any other radiation or modifying factors to the pain. Since arrival to the hospital the patient has had labs and imaging which I independently reviewed. A CT scan of the abdomen pelvis showed evidence of a cholecystectomy and postsurgical changes in the right hepatic lobe consistent with patient's reported history of hepatic adenoma removal. There is moderate fecal retention noted. There is no evidence of bowel obstruction and no free intraperitoneal air. There is no biliary ductal dilatation on this study. Labs include a CBC her white blood cell count and platelet count were within normal range. Hemoglobin and hematocrit are 11.5 and 35.3. Chemistry profile showed sodium and potassium as well as the BUN and creatinine were normal. Concerning patient's LFTs the patient's total bilirubin and AST were within normal range her ALT was elevated at 103 and her alkaline phosphatase was elevated at 137. Lipase was not elevated. Urinalysis was not indicative of infection. At the time of my interview the patient was in no distress. Allergies Allergy/AdvReac Type Severity Reaction Status Date / Time No Known Allergies Allergy Verified 01/12/24 22:07 Home Medications Medication Instructions Recorded Confirmed Type lansoprazole 30 mg capsule,delayed 30 mg PO Q OTHER DAY 02/24/19 01/12/24 History release (Prevacid) docusate sodium 100 mg capsule 100 mg PO BID 01/12/24 01/12/24 History fluvoxamine 100 mg tablet See Rx Instructions .Route .COMPLEX 01/12/24 01/12/24 History lamotrigine 25 mg tablet 25 mg PO QAM 01/12/24 01/12/24 History lidocaine 4 % topical patch 1 patch topical DAILY 01/12/24 01/12/24 History (Aspercreme (lidocaine)) metformin 500 mg tablet,extended 1,000 mg PO BID 01/12/24 01/12/24 History release 24 hr oxycodone 5 mg tablet 5 mg PO Q4H PRN Pain 01/12/24 01/12/24 History sennosides 8.6 mg tablet (Senna 17.2 mg PO QAM 01/12/24 01/12/24 History Laxative) tramadol 50 mg tablet 50 mg PO Q6H PRN Pain 01/12/24 01/12/24 History Patient History Medical History Sleep apnea CPAP at night Pre-diabetes History of COVID-19 2020 mild symptoms History of eating disorder History of osteopenia last bone density normal GERD (gastroesophageal reflux disease) History of gestational diabetes Clenching of teeth mouth guard qHS PTSD (post-traumatic stress disorder) Anxiety and depression History of seizure "drug induced" 2001; no issues since Urge and stress incontinence Iron deficiency anemia hx resolved after endo ablation Tinnitus Headache Depressive disorder Surgical History History of nasal surgery History of endometrial ablation over 5 years History of esophagogastroduodenoscopy (EGD) History of colonoscopy 3years ago S/P section S/P wisdom tooth extraction History of ankle surgery right History of surgery Perineoplasty Family History Sister Hearing loss Mother Hearing loss Grandmother (Maternal) Hearing loss Grandmother (Paternal) Hearing loss Other No family history of adverse response to anesthesia No family history of bleeding disorder Denies family history of Ovarian cancer Breast cancer Colorectal cancer Uterine cancer Social History Smoking Status: Never smoker Second Hand Exposure: No; Do You Dip or Chew Tobacco: No; Hx Alcohol Use: No Hx Substance Use: No Preferred Language: Slovenian Communication Ability: Effective Ssis Architect Required: No Beliefs That Will Affect Care: None Current Living Situation: Spouse Current Living Situation Comment: current occupational status: employed current occupation: [employer], PhD Other Information That Helps Us Care for You: No Feels Safe at Home: Yes Safety Concerns: Feels Safe At This Time Gender Identity: Female Assistive Devices: Glasses, Hearing Aid - Bilateral and Oxygen - at Night Assistive Devices Comment: BL hearfing aids not with patient upon admit Review of Systems Constitutional: no fever and no chills Ear, Nose, Mouth, Throat: no hearing loss Respiratory: + pain on inspiration (Pain noted in upp er abdomen with deep inspirations) Cardiovascular: no chest pain Gastrointestinal: as per Subjective / HPI Genitourinary: no dysuria Musculoskeletal: no back pain Integumentary: no rash Neurologic: no localized weakness Physical Exam Constitutional: WD/WN, vitals as above Eyes: + anicteric sclerae ENMT: Ears: no hearing impairment No sublingual jaundice noted Neck: trachea midline Respiratory: Breath sounds are present bilaterally. Respiratory effort was slightly decreased as this caused increase in patient's abdominal pain. There is no wheezing or use of accessory muscles Cardiovascular: Rate/Rhythm: regular rate and regular rhythm Vessels: dorsalis pedis pulses present and radial pulses present Gastrointestinal (Abdomen): Abdomen has minimal distention. It is soft and nonrigid. Patient did have pain with palpation in the right upper quadrant without rebound tenderness. She had a well-healed laparoscopic incision in the right upper quadrant. Patient also had a midline incision that was well-healed. I do not appreciate any hernias on palpation. Musculoskeletal: No calf tenderness Skin: no rashes Neurologic: moves all extremities Psychiatric: A+Ox3, euthymic affect Results & Data Vital Signs (Past 12 Hours) Vital Signs Temp Pulse Resp BP Pulse Ox O2 Del Method 01/12/24 23:30 78 17 129/74 01/12/24 22:33 78 16 148/83 H 96 Room Air 01/12/24 21:51 73 28 H 124/98 96 Room Air 01/12/24 21:12 76 14 133/81 96 Room Air 01/12/24 21:06 88 01/12/24 20:29 36.5 C 81 20 144/87 H 100 Room Air PG Care Time/CCT Total # of Minutes Spent Total Time Spent with Patient: Total time spent is greater than 50% in coordination of care (as documented) at patient's floor/unit and/or counseling patient: Coding Level of Care Code 71459 IN/OBS CONSULT LVL 4,60M Diagnoses Postoperative abdominal pain R10.9; G89.18
[2024-01-13] MEDS ORDERED: NALOXONE HCL INJ 1 MG/ML 2ML SYR INTNAS ONE (00:45)
[2024-01-13] MEDS ORDERED: MAGNESIUM HYDROXIDE SUSP 30 ML UDC PO PRN (00:45)
[2024-01-13] MEDS ORDERED: POLYETHYLENE (MIRALAX) 17 GM PACK PO PRN (00:45)
[2024-01-13] MEDS ORDERED: ACETAMINOPHEN 325 MG TAB PO PRN (00:45)
[2024-01-13] MEDS ORDERED: ALUMINUM/MAGNESIUM SUSP 30 ML UDC PO PRN (00:45)
[2024-01-13] MEDS ORDERED: ONDANSETRON INJ 2 MG/ML 2 ML VIAL IV PRN (00:45)
[2024-01-13] MEDS ORDERED: NALOXONE HCL 0.4 MG/1 ML VIAL/CARP IV PRN (01:29)
[2024-01-13] MEDS: SODIUM CHLORIDE 0.9% 1,000 ML IV SCH (01:48)
[2024-01-13] MEDS: PANTOprazole 40 MG in SYRINGE 0 ML IV SCH (02:03)
[2024-01-13] MEDS: fentaNYL citrate PF 100 MCG/2 ML VIAL IV PRN (02:15)
[2024-01-13] MEDS ORDERED: fentaNYL citrate PF 100 MCG/2 ML VIAL IV PRN (03:33)
[2024-01-13] MEDS: KETOROLAC TROMETHAMINE 15 MG/ML VIAL IV PRN (06:04)
[2024-01-13 07:21] LABS: Hematocrit (blood only) 32.3 % (37.0-47.0); Hemoglobin 10.9 g/dl (12.0-16.0); Mean Corpuscular Hemoglobin 28.2 pg (25.0-34.0); Mean Corpuscular Hgb Conc 33.7 g/dL (32.0-36.0); Mean Corpuscular Volume 83.7 fL (80.0-100.0); Mean Platelet Volume 8.8 fL (9.4-12.4); Platelet Count 297 K/uL (130-400); RDW Coefficient of Variation 13.7 % (11.5-14.5); RDW Standard Deviation 41.6 fL (36.4-46.3); Red Blood Count 3.86 M/uL (4.20-5.40); White Blood Count 6.58 K/ul (4.8-10.8)
--- NOTE | 2024-01-13 07:27 | Billing Data ---
Date of Service January 12, 2024 Coding Level of Care Code 67532 INT INP/OBS CARE
[2024-01-13 07:42] LABS: Albumin Level 3.2 gm/dl (3.4-5.0); BUN Creatinine Ratio 16.4 (10-20); Bilirubin,Total 0.3 mg/dl (0.2-1.0); Calcium 7.8 mg/dl (8.6-10.3); Creatinine Clr Calc Pharmacy 97.8 ml/min; Est GFR (African American) 120.5 ml/min; Est GFR (Non-African American) 103.9 ml/min; Globulin 3.2 gm/dl (2.5-4.0); Magnesium 1.7 mg/dl (1.7-2.4); Potassium 3.9 mmol/L (3.5-5.1); Total Protein 6.4 gm/dl (6.0-8.3)
[2024-01-13] MEDS: fluvoxaMINE MALEATE 50 MG TAB PO SCH (08:51)
[2024-01-13] MEDS: SENNA 8.6 MG TAB PO SCH (08:52)
[2024-01-13] MEDS: DOCUSATE SODIUM 100 MG CAP PO SCH (08:52)
[2024-01-13] MEDS: lamoTRIgine 25 MG TAB PO SCH (08:52)
[2024-01-13] MEDS: LIDOCAINE 5% 1 PATCH TD SCH (08:53)
[2024-01-13] MEDS: POLYETHYLENE (MIRALAX) 17 GM PACK PO SCH (08:53)
[2024-01-13] MEDS ORDERED: PANTOprazole 40 MG in SYRINGE 0 ML IV SCH (09:00)
[2024-01-13] MEDS ORDERED: HYDROmorphone INJ 1 MG/ML SYRINGE IV PRN (09:20)
[2024-01-13 10:39] LABS: iSTAT Creatinine 0.9 mg/dl (0.6-1.3); iSTAT Hemoglobin 11.6 g/dl (12.0-16.0); iSTAT Ionized Calcium 1.19 mmol/l (1.12-1.32); iSTAT Potassium 4.3 mmol/L (3.3-5.0)
[2024-01-13] MEDS: diazePAM 5 MG TABLET PO ONE (10:41)
--- OUTSIDE RECORDS SUMMARY | 2024-01-13 12:08 | External Medical Summary ---
Author Name Unknown Address Unknown Organization [id number]:LABORATORY [facility] - [facility] [address] [place] [address] Laboratory Report Ordering Provider Test Date Status ELIER WOMACK 01/10/2024 08:57:00 Final Observation Date Value Abnormality Reference (Units ) Status Albumin 01/10/2024 08:57:00 3.5 Below low normal 3.8-5.0 (g/dL) Final AST (Aspartate aminotransferase) 01/10/2024 08:57:00 97 Above high normal 10-35 (U/L) Final Alk Phos 01/10/2024 08:57:00 74 35-130 (U/L) Final ALT (Alanine aminotransferase) 01/10/2024 08:57:00 230 Above high normal 10-35 (U/L) Final Bilirubin, Total 01/10/2024 08:57:00 0.3 <=1.2 (mg/dL) Final Bilirubin, Direct 01/10/2024 08:57:00 <0.2 0.0-0.3 (mg/dL) Final Protein 01/10/2024 08:57:00 6.1 6.0-8.3 (g/dL) Final Performing Location LABORATORY [facility] - [facility] [address] [place] [address]
--- OUTSIDE RECORDS SUMMARY | 2024-01-13 12:08 | External Medical Summary ---
Author Name Unknown Address Unknown Organization [id number]:LABORATORY [facility] [place] - [address] [place] [address] Laboratory Report Ordering Provider Test Date Status ELIAS GONZALEZ 01/08/2024 11:27:00 Final Observation Date Value Abnormality Reference (Units ) Status BUN 01/08/2024 11:27:00 16 6-20 (mg/dL) Final Creatinine 01/08/2024 11:27:00 0.8 0.5-1.0 (mg/dL) Final Glomerular filtration rate/1.73 sq M.predicted [Volume Rate/Area] in Serum, Plasma or Blood by Creatinine-based formula (CKD-EPI) 01/08/2024 11:27:00 88 >=60 (mL/min) Final eGFR is calculated based on the CKD-EPI 2020 equation Sodium 01/08/2024 11:27:00 139 135-146 (m mol/L) Final Potassium 01/08/2024 11:27:00 4.0 3.5-5.1 (m mol/L) Final Cl 01/08/2024 11:27:00 103 98-107 (mm ol/L) Final CO2 01/08/2024 11:27:00 22 22-32 (mmo l/L) Final Anion gap 01/08/2024 11:27:00 14 7-15 (mmol /L) Final Glucose 01/08/2024 11:27:00 178 Above high normal 70 -120 (mg/dL) Final Albumin 01/08/2024 11:27:00 3.6 Below low normal 3.8 -5.0 (g/dL) Final AST (Aspartate aminotransferase) 01/08/2024 11:27:00 106 Above high normal 10-35 (U/L) Final Alk Phos 01/08/2024 11:27:00 59 35-130 (U/ L) Final Bilirubin, Total 01/08/2024 11:27:00 0.3 <=1 .2 (mg/dL) Final Calcium 01/08/2024 11:27:00 7.6 Below low normal 8.4 -10.2 (mg/dL) Final Protein 01/08/2024 11:27:00 5.9 Below low normal 6.0 -8.3 (g/dL) Final ALT (Alanine aminotransferase) 01/08/2024 11:27:00 119 Above high normal 10-35 (U/L) Final Performing Location LABORATORY [facility] - [address] [facility] [address]
--- OUTSIDE RECORDS SUMMARY | 2024-01-13 12:08 | External Medical Summary ---
Author Name Unknown Address Unknown Organization [id number]:LABORATORY [facility] - [address] [place] [address] Laboratory Report Ordering Provider Test Date Status ELIAS GONZALEZ 01/09/2024 06:37:00 Final Observation Date Value Abnormality Reference (Units ) Status Magnesium 01/09/2024 06:37:00 2.2 1.5-2.6 (m g/dL) Final Performing Location LABORATORY [facility] - [address] [place] [address]
--- OUTSIDE RECORDS SUMMARY | 2024-01-13 12:08 | External Medical Summary ---
Author Name Unknown Address Unknown Organization [id number]:LABORATORY [place] [address] [facility] [address] Laboratory Report Ordering Provider Test Date Status ELIAS GONZALEZ 01/08/2024 11:27:00 Final Observation Date Value Abnormality Reference (Units ) Status WBC, Total 01/08/2024 11:27:00 13.41 Above high normal 4.00-10.80 (K/uL) Final RBC 01/08/2024 11:27:00 4.01 3.85-5.15 (M/uL) Final Hemoglobin 01/08/2024 11:27:00 11.5 Below low normal 12.0-15.3 (g/dL) Final HCT 01/08/2024 11:27:00 34.9 Below low normal 36.0-45.2 (%) Final MCV 01/08/2024 11:27:00 87.0 81.5-97.5 (fL) Final MCH 01/08/2024 11:27:00 28.7 27.0-34.0 (pg) Final MCHC 01/08/2024 11:27:00 33.0 32.0-36.0 (g/dL) Final RDW 01/08/2024 11:27:00 14.5 11.5-15.5 (%) Final Platelets 01/08/2024 11:27:00 274 140-400 (K/uL) Final MPV 01/08/2024 11:27:00 9.2 6.6-11.1 (fL) Final Nucleated erythrocytes/100 leukocytes [Ratio] in Blood by Automated count 01/08/2024 11:27:00 0 <=0 (/100 WBCs) Final Performing Location [facility] [place] [address] [place] [address]
--- OUTSIDE RECORDS SUMMARY | 2024-01-13 12:08 | External Medical Summary ---
Author Name Unknown Address Unknown Organization [id number]:[facility] - [facility] [address] [facility] [address] Laboratory Report Ordering Provider Test Date Status ELIER WOMACK 01/10/2024 08:57:00 Final Observation Date Value Abnormality Reference (Units ) Status WBC, Total 01/10/2024 08:57:00 10.34 4.00-10.80 (K/uL) Final RBC 01/10/2024 08:57:00 3.73 3.85-5.15 (M/uL) Final Hemoglobin 01/10/2024 08:57:00 10.5 Below low normal 12.0-15.3 (g/dL) Final HCT 01/10/2024 08:57:00 33.4 Below low normal 36.0-45.2 (%) Final MCV 01/10/2024 08:57:00 89.5 81.5-97.5 (fL) Final MCH 01/10/2024 08:57:00 28.2 27.0-34.0 (pg) Final MCHC 01/10/2024 08:57:00 31.4 32.0-36.0 (g/dL) Final RDW 01/10/2024 08:57:00 14.8 11.5-15.5 (%) Final Platelets 01/10/2024 08:57:00 263 140-400 (K/uL) Final MPV 01/10/2024 08:57:00 9.4 6.6-11.1 (fL) Final Nucleated erythrocytes/100 leukocytes [Ratio] in Blood by Automated count 01/10/2024 08:57:00 0 <=0 (/100 WBCs) Final Performing Location [facility] - [address] [place] [id number]
--- OUTSIDE RECORDS SUMMARY | 2024-01-13 12:08 | External Medical Summary | Summary of Care ---
Author Name Unknown Organization [facility] Address [address] [place] [address] Phone [phone] Care Team Providers Care Product Demonstrator Name Role Phone Martha Torres Primary Care Provider Reason for Visit * Auth/Cert Specialty Diagnoses / Procedures Referred By Star t Referred To Contact Diagnoses Liver mass, right lobe Liver mass, right lobe [R16.0] Procedures PARTIAL REMOVAL OF LIVER/LOBE HEPATECTOMY PARTIAL LOBECTOMY - cholecystectomy - hand-assisted Jarret Augustin MD [address] [place] [address] Or [facility] [address] [place] [address] Referral ID Status Reason Start Date Expiration Date Visits Re quested Visits Authorized [id number] Encounter Details Date Type Department Care Team (Latest Contact Info) Description 01/08/2024 6:10 AM EDT - 01/10/2024 2:41 PM EDT Hospital Encounter Advanced Acute Care Medical/Transplant Unit, [facility] 3rd Floor [address] [place] [address] Jarret Augustin MD [address] [place] [address] Discharge Disposition: Home - Self Care Allergies No known active allergiesdocumented as of this encounter (statuses as of 01/11/2024) Medications Medication Sig Dispensed Refills Start Date End Date Status lansoprazole DR (PREVACID) 30 MG CPDR Take 1 Capsule by mouth every other day. 1 01/19/2018 Active lamoTRIgine 100 MG Oral Tablet (LaMICtal) Take 1 Tablet by mouth in the morning and 1 Tablet before bedtime. Active Vitamin D (Ergocalciferol) 1.25 MG (76380 UT) Oral Capsule (Drisdol) Take 1 Capsule by mouth once a week. Active CPAP every night at bedtime. Active fluvoxaMINE Maleate ER 150 MG Oral Capsule Extended Release 24 Hour (Luvox CR) 2 Capsules in the morning. 10/06/2023 Active metFORMIN HCl ER 500 MG Oral Tablet Extended Release 24 Hour (Glucophage XR) Take 2 Tablets by mouth in the morning and 2 Tablets before bedtime. 10/21/2023 Active fluvoxaMINE Maleate 100 MG Oral Tablet (Luvox) Take 2 Tablets by mouth in the morning. Active fluvoxaMINE Maleate 100 MG Oral Tablet (Luvox) Take 1 Tablet by mouth every evening. Active Acetaminophen 325 MG Oral Tablet (Tylenol) Take 2 Tablets by mouth every 6 hours. 30 Tablet 01/10/2024 Active oxyCODONE HCl 5 MG Oral Tablet (Oxy IR) Take 1 Tablet by mouth every 4 hours as needed for Pain, Moderate for up to 14 days. 14 Tablet 01/10/2024 01/24/2024 Active Lidocaine 4 % External Patch (Aspercreme) Place 1 Patch over 12 hours topically on the skin in the morning for 7 days. 7 Patch 01/11/2024 01/18/2024 Active Sennosides 8.6 MG Oral Tablet (Senokot) Take 2 Tablets by mouth in the morning for 14 days. 28 Tablet 01/11/2024 01/25/2024 Active Docusate Sodium 100 MG Oral Capsule (Colace) Take 1 Capsule by mouth in the morning and 1 Capsule before bedtime. Do all this for 14 days. 10 Capsule 01/10/2024 01/24/2024 Active traMADol HCl 50 MG Oral Tablet (Ultram) Take 1 Tablet by mouth every 6 hours as needed for Pain, Severe for up to 14 days. 14 Tablet 01/10/2024 01/24/2024 Active documented as of this encounter (statuses as of 01/11/2024) Active Problems Problem Noted Date Diagnosed Date Liver mass, right lobe 10/26/2023 documented as of this encounter (statuses as of 01/11/2024) Immunizations Name Administration Dates Next Due HEP A - Hepatitis A (Adult > 18 yrs) 02/22/2018 Yellow Fever Vaccine - Alternative (Stamaril) documented as of this encounter Social History Tobacco Use Types Packs/Day Years Used Date Smoking Tobacco: Never Smokeless Tobacco: Never Sex and Gender Information Value Date Recorded Sex Assigned at Not on file Gender Identity Not on file Sexual Orientation Not on file Job Start Date Occupation Industry Not on file Not on file Not on file documented as of this encounter Last Filed Vital Signs Vital Sign Reading Time Taken Comments Blood Pressure 144/85 01/10/2024 10:00 AM EDT Pulse 86 01/10/2024 10:00 AM EDT Temperature 37.2 C (99 F) 01/10/2024 10:00 AM EDT Respiratory Rate 18 01/10/2024 10:00 AM EDT Oxygen Saturation 97% 01/10/2024 10:00 AM EDT Inhaled Oxygen Concentration - - Weight 75 kg (165 lb 4.8 oz) 01/08/2024 6:19 AM EDT Height 157.5 cm (5' 2") 01/08/2024 6:19 AM EDT Body Mass Index 30.23 01/08/2024 6:19 AM EDT documented in this encounter Functional Status Functional Status Response Date of Assess ment Are you deaf or do you have serious difficulty h earing? No 01/08/2024 Are you blind or do you have serious difficulty seeing, even when wearing glasses? No 01/08/2024 Do you have serious difficul ty walking or climbing stairs? (5 years old or older) No 01/08/2024 Do you have difficulty dress ing or bathing? (5 years old or older) No 01/08/2024 Because of a physical, menta l, or emotional condition, do you have difficulty doing errands alone such as visiting a doctor s office or shopping? (15 years old or older) No 01/08/20 Cognitive Status Response Date of Assessm ent Because of a physical, menta l, or emotional condition, do you have serious difficulty concentrating, remembering, or making decisions? (5 years old or older) No 01/08/2024 documented as of this encounter Discharge Instructions * Discharge Instr - AVS* El Miniawi, Irvin Nasser, MD - 01/08/2024 4:36 PM EDT Discharge Date: 01/10/2024 You may call Transplant Surgery Clinic during business hours for any questions or test results. Forafter-hours emergencies call [facility]. The information below provides you with the instructions and the list of medications you need to betaking following discharge from the hospital. If you have any questions, please ask before leaving.Please carry this letter with you when you see your doctor in the clinic. If you have questions, you can reach us at the numbers above. Brief summary of your inpatient care: You were admitted for elective surgery of partial hepatectomy. You recovered appropriately and were found appropriate for discharge home. Your doctors during this hospitalization included: Dr. Recinos, Dr. Augustin, Dr. Ramírez Inpatient test results pending: surgical pathology Operations & Procedures: Laparoscopic, hand-assisted, partial liver resection (segment V), intraoperative ultrasound with duplex, and cholecystectomy on 01/08/24 Complications: none applicable Diet: normal diet Activity: No lifting or pushing or pulling more than 10 lbs for 6 weeks or if cleared earlier by your surgeon. Getting up and walking after surgery aids recovery in many ways. Much of the pain after major surgery is from muscle spasm. Getting out of bed, sitting and walking help you loosen up and actually reduce your pain. This also helps your breathing and quickens the recovery of your bowel function. Walking and using the stairs is permitted. You should try to get lots of rest. You should avoid full activity and vigorous exercise for about six to eight weeks after surgery. Driving: Don't drive until you are off narcotics for one full week and can walk normally and firmlyapply the brake without pain. Special Instructions: Call the Transplant Surgery clinic if you have any questions or concerns or if you experience any of the following: - Elevated temperatures of 101.5 degrees or greater - Persistent nausea and vomiting - Pus-like drainage or redness around the incision or wound - Pain that is not controlled with prescribed medications Follow up with Dr. Augustin in 2 weeks. - Breathing exercises: These are extremely important. You should do these every hour during waking hours, taking at least ten deep breaths. This expands the small air sacs in the lungs and minimizes postoperative fever and pneumonia. Use your incentive spirometry 10 times/hour when you are awake. - Take a stool softener while taking narcotic pain medication; hold for loose stools. - May shower, but do not scrub vigorously over the incisions. - Do not immerse the incision (for example, no swimming, no tub baths, no hot tubs). - Abdominal binder use at all time except when you shower. - DERMABOND surgical adhesive covers your incision. This will begin to fall off in about 2 weeks.Do not pick at the wound. Do NOT apply any ointment or lotion to the incision. Take around the clock Tylenol and Flexeril (cyclobenzaprine) as prescribed for pain control and usenarcotics (tramadol, oxycodone, as prescribed) as needed for breakthrough pain only. Use senna, miralax, and colace for constipation Future Appointments-next 60 days Date/Time Provider Specialty Dept Phone 01/25/2024 10:30 AM Adrián Recinos MD Transplant Clinic [phone] documented in this encounter Progress Notes * Irvin Townsend MD - 01/09/2024 12:27 PM EDT Transplant Surgery Daily Progress Note Patient: Aren Grove Date: 01/09/2024 Assessment and Plan Aren Grove is a 48 year old year old female with a liver mass abutting the gallbladder whois now s/p laparascopic hand assisted partial liver resection (segment V) with intraoperative ultrasound with duplex and cholecystectomy 01/08/24. Diet: Advance to regular diet Antibiotics: zosyn for 24 hours Fluids: NSS at 50ml/hr discontinue Mcclure: none Prophylaxis: none Dispo: Med surg -scheduled tylenol -Oxycodone, gabapentin, tramadol, toradol add on cyclobenzaprine -smaller fitting abdominal binder -[place] FORMER home lamotrigine -Docusate -out of bed -regular diet Subjective No acute events overnight, patient on bedrest tolerating clears. Patient reports uncontrolled incisional pain this AM. Physical Exam BP 129/72 | Pulse 78 | Temp 36.8 C (98.2 F) (Tympanic) | Resp 20 | Ht 1.575 m (5' 2") | Wt 75 kg (165 lb 4.8 oz) | SpO2 92% | BMI 30.23 kg/m | BSA 1.81 m General: No acute distress Eyes: Extraocular movements intact bilaterally, no scleral icterus Cardiac: Regular rate and rhythm Respiratory: Lungs clear to auscultation bilaterally Abdomen: Incision without inflammation or drainage. Soft, appropriately tender, no masses Musculoskeletal: No lower extremity edema Neurologic: Moves all extremities purposefully and equally Psychiatric: Normal mood and affect Labs and Imaging All labs and imaging reviewed. Significant findings and interventions discussed above. Intake/Output Summary (Last 24 hours) at 01/09/2024 1228 Last data filed at 01/09/2024 1017 Gross per 24 hour Intake 1856.54 ml Output -- Net 1856.54 ml Associated attestation - Adrián Recinos MD - 01/09/2024 1:48 PM EDT I saw and evaluated the patient today. I have reviewed the trainee note and agree. documented in this encounter H&P Notes * Rosalind Leung MD - 01/08/2024 7:05 AM EDT HISTORY & PHYSICAL EXAMINATION - Transplant Surgery [address] [address] Name: Aren Grove Location: Room/bed info not found Date: 01/08/2024 Time: 07:06 AM PRESENTING PROBLEM: admission for lap hand-assisted partial liver resection and cholecystectomy with TAP block. The patient is a 48 year old yr old female with a history of reflux who had a CT years ago that revealed a mass in the liver who presented after ED evaluation for GERD revealed the liver mass had grown to ~5 cm. Was biopsied and found to be adenoma. Patient is active with biking, walking, Pilates and cross-training. Last seen in transplant surgery clinic 10/26/23 with subsequent pre-op evaluation finding patient to be suitable operative candidate. Reports feeling well overall with no acute complaints. Denies fevers, chills, chest pain, SOB, nausea, emesis, weakness, numbness. PAST MEDICAL HISTORY: No past medical history on file. PAST SURGICAL HISTORY: Past Surgical History: Procedure Laterality Date IR BIOPSY 08/24/2023 FAMILY HISTORY: No family history on file. SOCIAL HISTORY: Social History Tobacco Use Smoking status: Never Smokeless tobacco: Never Substance Use Topics Alcohol use: Not on file Drug use: Not on file CURRENT MEDICATIONS: Current Outpatient Medications Medication Instructions CPAP QHS Ergocalciferol (Vitamin D2) (DRISDOL) 50,000 Units, Oral, QWEEK fluvoxaMINE Maleate ER 150 MG Oral Capsule Extended Release 24 Hour (Luvox CR) 2 Capsules, Daily(AM) lamoTRIgine (LAMICTAL) 100 mg, Oral, BID (.AM/PM) lansoprazole DR (PREVACID) 30 mg, Oral, EVERY OTHER DAY metFORMIN ER (GLUCOPHAGE XR) 1,000 mg, Oral, BID (.AM/PM) ALLERGIES: Patient has no known allergies. ROS: All pertinent positive and negative findings as reported above in HPI. PHYSICAL EXAMINATION: BP: / Pulse: Temp: Temp Summary: No data recorded SpO2: O2 flow rate: Supplemental O2 Delivery: General: in no acute distress, comfortable-appearing HEENT: atraumatic, normocephalic CV: regular rate and rhythm on monitor Pulm: unlabored respirations on RA, symmetrical chest rise GI: soft, non-distended, non-tender Neuro: AAOx3, no focal deficits MSK: moving extremities spontaneously Skin: dry and warm LABS/RADIOLOGY: Reviewed. 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 Patientvery active and with no smoking or CAD history. Also, s/p general anesthesia for shoulder surgery without complication. Pre-op evaluation completed finding patient appropriate surgical candidate. Plan for lap hand- assisted partial liver resection and cholecystectomy with TAP block later today. Procedure along with associated risks, benefits, and alternatives discussed with patient who verbalized understanding and wish to proceed with surgery. Voluntary consent obtained. Rosalind Leung MD Associated attestation - Jarret Augustin MD - 01/08/2024 7:24 AM EDT I saw and evaluated the patient today. I have reviewed the trainee note and agree. documented in this encounter Nursing Notes * Belen Stearns RN - 01/08/2024 1:30 PM EDT Dual Licensed Skin Assessment completed by Belen Paredes and Krupa Muñoz. The patient is/has a N/A Skin Breakdown (includes non blanchable erythema): Yes - Surgical/Procedural changes only. Topical glue to abdomen incisions. * Loli Felix RN - 01/08/2024 12:29 PM EDT PERIOP TO IP HANDOFF COMMUNICATION NOTE [address] [address] Name: Aren Grove AGE: [age] year old Location: OR [facility]/OR Date: 01/08/2024 Attention to: Belen Stearns Report from: Loli Felix RN Patient arriving via: Bed Time of call: 12:29 PM Phone Ext: [phone] Reason for SBAR (Situation, Background, Assessment, Recommendation) handoff: OR Sending to: [id number] Emotional/Personal Events & Special Needs: n/a Prescriptions in chart: No Code Status: Full Code Safety Concerns: no safety concerns identified Allergies: Patient has no known allergies. PMH:No past medical history on file. PSH: Past Surgical History: Procedure Laterality Date IR BIOPSY 08/24/2023 Isolation: Isolation: Procedure: HEPATECTOMY PARTIAL LOBECTOMY - cholecystectomy - hand-assisted Type of Anesthesia: General endotracheal anesthesia Block: n/a IV intake: 1200 mL EBL: OR: 200 mL PACU: 0 mL Urine output: OR 0 mL PACU 0 mL IUBC (Mcclure): Incision location: abd Dressing location: abd Time of last skin assessment: 1200 Pressure injuries or areas of concern: n/a Lines: Peripheral Line Left Hand 20 Gauge (Active) Status Flushes easily;Capped/Locked;Alcohol disinfectant cap;Cap changed 01/08/24 1200 Tubing Changed N/A 01/08/24 1200 Phlebitis Scale 0 01/08/24 1200 Infiltration Scale 0 01/08/24 1200 Site Description (Other) Without redness, swelling or drainage 01/08/24 1200 Site Intervention Flushed 01/08/24 1200 Dressing Assessment Dressing clean, dry, and intact 01/08/24 1200 Dressing Intervention None required 01/08/241199 Number of days: 0 Peripheral Line Right Hand 18 Gauge (Active) Status Flushes easily 01/08/24 1200 Tubing Changed N/A 01/08/24 1200 Phlebitis Scale 0 01/08/24 1200 Infiltration Scale 0 01/08/24 1200 Site Description (Other) Without redness, swelling or drainage 01/08/24 1200 Site Intervention Flushed 01/08/24 1200 Dressing Assessment Dressing clean, dry, and intact 01/08/24 1200 Dressing Intervention Applied 01/08/24 1200 Number of days: 0 Peripheral Line Lower;Posterior;Right Arm 18 Gauge (Active) Status Flushes easily 01/08/24 1200 Tubing Changed N/A 01/08/24 1200 Phlebitis Scale 0 01/08/24 1200 Infiltration Scale 0 01/08/24 1200 Site Description (Other) Without redness, swelling or drainage 01/08/24 1200 Site Intervention Flushed 01/08/24 1200 Dressing Assessment Dressing clean, dry, and intact 01/08/24 1200 Dressing Intervention Applied 01/08/24 1200 Number of days: 0 Vital Signs: BP: 126/53 (01/08/24 1215) Temp: 36.9 C (98.4 F) (01/08/24 1200) Pulse: 80 (01/08/24 1215) Resp: 9 (01/08/24 1215) SpO2: 94 % (01/08/24 1215) O2 flow rate: 2 L/MIN (01/08/24 1215) Glucose (Bedside): 167 (01/08/24 1055) Time of last pain medication: 1203 Med: lido patch Time of last antibiotic: 0752 Med: zosyn Time of last antiemetic: 0954 Med: zofran SQL MANAGER: no Drips: yes - NSS 50ml/hr Neurological: Speech: Clear;Delayed response (01/08/24 1055) Level of Consciousness: Responds to voice (01/08/24 1200) RUE Motor Strength: 5-Active movement with full resistance (01/08/241199) RLE Motor Strength: 5-Active movement with full resistance (01/08/241199) LUE Motor Strength: 5-Active movement with full resistance (01/08/241199) LLE Motor Strength: 5-Active movement with full resistance (01/08/241199) Coma Score: 15 (01/08/241199) Respiratory: Respiratory WNL: WNL- within normal limits (01/08/241199) Cough: None (01/08/241199) Depth/Rhythm: Regular (01/08/241199) Dyspnea Occurance: None (01/08/241199) Effort: Unlabored (01/08/241199) Oxygen therapy/ Mechanical vent Supplemental O2 Delivery: Nasal Cannula (01/08/241214) O2 flow rate: 2 L/MIN (01/08/241214) Cardiac: Cardiovascular WNL: WNL - within normal limits (01/08/241199) Heart Sounds: S2;S1 (01/08/241199) Rhythm: Regular;NSR (01/08/241199) Extremities: +Sensation;Right;Left;Upper;Lower;[place];Warm (01/08/241199) Pulses Right: Dorsalis Pedis + (01/08/241199) Pulses Left: Dorsalis Pedis + (01/08/241199) Capillary Refill: 2 sec (01/08/241199) GI: GI WNL: X - Exceptions to WNL as documented below (01/08/241199) Abdomen: Soft;Non-distended;Bowel sounds hypoactive (01/08/241199) : WNL: X - Exceptions to WNL as documented below (01/08/241199) Urine Description: Other-Describe (no urine to assess at this time) (01/08/241199) Due to Void: 1700 Integumentary:Integumentary WNL: X - Exceptions to WNL as documented below (01/08/241199) Skin Description: Warm;Dry (01/08/241199) Skin Color: Flesh Tone (01/08/241199) Skin Lesion: Other - Describe (see below) (01/08/241199) Family updated on transfer: yes Additional Assessment Information: pt did well, post op pain managed * Nayely Jensen RN - 01/08/2024 11:37 AM EDT Dual Licensed Skin Assessment completed by self and Travis JUAN. The patient is/has a N/A Skin Breakdown (includes non blanchable erythema): Yes - Surgical/Procedural changes only. * Ana Irizarry RN - 01/08/2024 7:23 AM EDT Dual Licensed Skin Assessment completed by Mechelle Irizarry RN and Daniella Zapien RN. The patient is/has a N/A Skin Breakdown (includes non blanchable erythema): No * Domenico Robertson NA - 01/08/2024 6:23 AM EDT Patient or the Patients Legally Authorized Assistant Account Executive has been advised that (1) the Patient meets criteria for testing and (2) the administration of anesthesia, radiation or other imaging agents may have a harmful impact to an unborn child. The Patient or Patients Representativewere offered the opportunity to ask questions as to necessity of such testing and potential outcomes. Consent for testing has been given. * Theresa Ziegler RN - 01/06/2024 2:36 PM EDT Presurgery instructions sent to patient via NextInput message. Pre-operative chart review completed-instructions provided based on current medication list in [facility]. NO ANESTHESIA EVAL REQUESTED PER CASE DOCUMENTATION. PREOP PATIENT INFORMATION AND EDUCATION: MEDICATION INSTRUCTIONS: The day of surgery/procedure, you may TAKE the following medications with a sip of water up to 2 hours prior to your arrival time: -Fluvoxamine -Lamotrigine -Lansoprazole AVOID/ DO NOT TAKE any medications the morning of surgery/procedure that are not listed above. AVOID / DO NOT TAKE the following medications the evening prior to and morning of surgery/procedure: -Metformin STOP taking the following medications the noted number of days prior to surgery/procedure unless otherwise specified by your surgeon: Please follow surgeon's instructions regarding use of Aspirin, Coumadin, Plavix, Eliquis, and any other blood thinner including NSAIDs (non-steroidal anti- inflammatory drugs, eg, Advil, Ibuprofen, Motrin, Aleve, Naproxen); if you have any questions regarding your anticoagulation therapy please contact your surgeon's clinic. Please verify any proposed stoppage of your anticoagulation therapy with the agent's prescribing provider. 10 days prior to surgery/procedure Stop all Herbal supplements, Green Tea, Turmeric, Melatonin, CBD, THC, etc. Stop all Vitamins (including Vitamin E) 24 hours prior to surgery/procedure DO NOT consume any alcohol. DO NOT use medical marijuana. DO NOT smoke or use tobacco products of any kind after midnight prior to surgery. *Using any of these products may increase your risks of procedural complications. IF IT IS LESS THAN RECOMMENDED STOPPAGE TIME PLEASE STOP AT TIME OF NOTIFICATION. FASTING RECOMMENDATIONS: To reduce risk, it is important for all elective surgery patients to follow the specific fasting guidelines listed below. If you have received more stringent guidelines, please follow the MOST RESTRICTIVE guidelines that you have been provided. DO NOT EAT after midnight on the night prior to your surgery date. You are allowed to drink clear liquids up to two hours prior to arrival time to the hospital or surgery center. Examples of clear liquids include water, clear fruit juice without pulp, clear carbonated beverages, clear tea, and black coffee. Any drinks given by your surgical service take as directed. Infant/pediatric patients who currently drink breast milk, infant formula, and non-human milk must not eat after midnight. These patients are allowed to drink only the liquids listed below up to two hours prior to arrival time to the hospital or surgery center: Ingested Material Minimum Fasting Time Clear liquid After midnight up to 2 hours prior to arrival time Breast milk Up to 4 hours prior to arrival time formula Up to 6 hours prior to arrival time Non-human milk Up to 6 hours prior to arrival time THE DAY BEFORE YOUR SURGERY: -Drink plenty of fluid the day before your surgery. Contact your surgeon's office if you develop any of the following within 2 weeks of surgery: A cold Infection Fever Shingles Chicken pox or exposure to chicken pox Open areas such as scrapes, cuts, hammond or other skin conditions Rashes GENERAL INSTRUCTIONS FOR PREPARING FOR SURGERY: BATHING INSTRUCTIONS: Bathe the evening prior to and the morning of surgery/procedure. Cleanse your body using ONLY anti-bacterial soap (eg, Dial, Safeguard) or any specific soap/cleansers and instructions provided by your surgeon (eg, Chlorhexidine). -You should brush your teeth the morning of surgery. Do NOT apply any lotions, powders, sprays, creams, oils, make-up, or deodorants after bathing. No hairspray, or nail hungarian on fingers or toes. Day of surgery/procedure do not use tampons. If you wear contacts wear your eyeglasses if available otherwise bring your contact supplies with you to remove them prior to your surgery/procedure. If you wear glasses or dentures, please bring cases in which you can store them during your surgery. Please remove all piercings and jewelry and leave them at home. Wear comfortable and loose clothing. -Please leave all valuables at home. -If you use a CPAP and are staying overnight, please bring your mask and tubing with you to the hospital. -If you use an assistive mobility device (walker, cane, etc), please label it with your name and bring to hospital. -An escort cpr ambulance driver is required if you are being discharged the same day of the surgery. You should have a responsible adult over the age of 18 [address] you home. This person should be present with youin the hospital at the time of discharge and for the first 24 hours after the surgery to support your needs. If you are taking a taxi home, you must have your responsible republican accompany you in the taxi ride home at the time of discharge. OR times subject to change. Please check voicemail messages the day/evening before your surgery forany updates. PRE-OP: You will be taken to the pre-op area where your vital signs (blood pressure, pulse and temperature)will be taken. Any preparations that need to be done will be done there. When it is time for your surgery, you will be taken to the operating room. PARENTS OF PEDIATRIC PATIENTS WILL BE ALLOWED TO STAY WITH THEIR CHILDREN UNTIL THEY ARE ESCORTED TO THE OPERATING ROOM OUTPATIENT SURGERY PATIENTS: After your surgery you will be taken to the Same Day Surgery Unit when you are awake and will go home from there. You will get instructions about your home care before you leave. Arrange to have someone drive you home from the hospital. You may not drive for 24 hours after anesthesia. You must havean adult stay with you at home for 24 hours after your operation. This is very important. If you are not able to comply with these guidelines, your Short Stay surgery cannot be done. ADMISSION PATIENTS: After your stay in the recovery area, you will be taken to your room. Your family may visit you in your room based on current visitation policy. If a next day discharge is expected, it is important to make arrangements for a cpr ambulance driver to take you home. Please be aware our visitation policies are subject to change Professionals, attendants, caregivers or family members are allowable visitors for patients with intellectual, developmental or cognitive disabilities, communication barriers or behavioral concerns. Because patients' and families' needs vary, they will be taken into account when applying visitation restrictions. ANESTHESIA INFORMATION This information has been prepared to help you and your family better understand the process of anesthesia, so that you may help make well-informed decisions about your care. This information is alsoprovided to guide your completion of the [facility] anesthesia consent form which addresses real, but infrequent, problems associated with anesthesia. IMPORTANT INFORMATION TO PREVENT YOUR SURGERY FROM BEING CANCELLED/ RESCHEDULED: --You are required to have a cpr ambulance driver to take you home whether you are admitted to the hospital following your surgery or not --You are required to have a responsible adult with you for the first 24 hours after surgery to support your needs Types of Anesthesia: Local Anesthesia Local anesthetic drugs (numbing drugs) are usually injected into the tissues to numb just the specific location of your body requiring minor surgery, such as an area of your hand or foot. Regional Anesthesia -Regional anesthesia involves the use of local anesthetics (numbing drugs) to numb larger areas of your body by blocking nerves to those areas. This is commonly referred to as a nerve block. Another way of performing regional anesthesia is by blocking nerves of the spinal cord by injecting numbing m edicines with great exactness around those nerves. This is called spinal or epidural anesthesia depending on exactly where the medication is injected. The type of regional anesthesia selected dependson the type of surgery and whether regional anesthesia is being done to help with pain after surgery or as a part of the anesthesia for surgery. You may remain awake, be sedated, or be given a general anesthetic depending on the type of surgery and the type of regional anesthesia performed Monitored Anesthesia Care (MAC) -Describes a range of sedation that can be given to a patient undergoing a procedure. The level of sedation usually depends on what is needed for the procedure being performed. A patient could be awake and aware of the procedure being performed but be relaxed and able to follow instructions as needed or may be unaware of what is happening and only rouse to significant stimulation. A patient may be able to speak, hear things around them, and answer questions and follow commands but is not in pain or anxious. A patient may experience varying depths of sedation during the procedure. The use of general anesthesia could result if this type of anesthesia is ineffective. General Anesthesia - Occurs by using a combination of medications to put a patient into a deep, sleep-like, unresponsive state for surgery. This is required for many surgical procedures. Under general anesthesia, a patient does not feel pain and is unaware of what is happening during the procedure. Systems in the body may not function normally while a patient is under general anesthesia. They are monitored by the anesthesia provider and may need to be assisted while a patient is under general anesthesia. For example, a breathing device may need to be placed in the airway to assist breathing and medications may need to be given to ensure that your blood pressure and heart rate remain normal. Risks of Anesthesia: Regional/Local/Nerve Blocks -Include but are not limited to, , cardiac or respiratory arrest, permanent complete paralysis, permanent nerve injury, seizure, spinal headache, backache, pain in buttocks and legs, infection, bleeding, leakage of spinal fluid, inadequate pain relief, bowel or bladder dysfunction, prolonged numbness or pain, temporary drop in blood pressure, or allergic reaction to the medications. Monitored Anesthesia Care (MAC) -Common risks include temporary dizziness, light-headedness, nausea and/or vomiting, and leakage ofintravenous fluid into the tissues with swelling or discoloration of the area or residual pain. Less common risks include, but are not limited to, , heart attack, permanent brain damage, stroke,pneumonia, blood clots, awareness, nerve stretch injury of your arm, neck or leg, permanent liver damage and allergic reaction to the medications. General Anesthesia -More common risks include temporary sore throat, pain in the neck or other muscles, dizziness, light-headedness, nausea and/or vomiting, and leakage of intravenous fluid into the tissues with swelling or discoloration of the area or residual pain. Less common risks include, but are not limited to,, heart attack, permanent brain damage, stroke, pneumonia, blood clots, irritation of the cornea of your eye, vision loss, loosened or broken teeth, or other oral injuries, awareness, nerve stretch injury of the arm, neck or leg, hoarseness, laryngospasm, permanent liver damage and allergic reaction to the medications. History of anesthesia complications: If you or a family member have had a complication related to anesthesia such as difficulty with placement of a breathing tube or a serious reaction to a medication administered for anesthesia, pleasetell your anesthesia provider. Having this information will help keep you safe while under anesthesia Nausea: A common side effect of anesthesia is nausea, but some patients do experience both nausea and vomiting. If you have experienced nausea or vomiting after anesthesia in the past, be sure to tell your anesthesia provider so medication can be given to help prevent it from happening again. Patient safety/consenting process: All surgical procedures and anesthetics have some small risks. They are dependent upon many factorsincluding the type of surgery and your medical condition. That is why it is important to know aboutany underlying medical problems, how they are treated and how they can be managed to reduce the risks of anesthesia and surgery. Thus, it is important for your anesthesia provider to ask detailed questions about your medical history, and to know what prescription medications you are taking, including dosages and schedules, as well as any over the counter or herbal medicines and supplements. You must notify the doctor of any of the following: -if you are or possibly -if you have any sensitivity to medications -present mental and physical condition -if recently consumed alcohol or non-clear liquids -if you are presently on psychiatric mood-altering drugs or other medications If you are a female of child-bearing age and you use any form of hormone-based contraception, please continue to use it and, in addition, use an alternative form of contraception, such as condoms andspermicide for a month after discharge from the hospital. This is because during the hospitalization you might receive one or more medications that may render hormone-based contraceptives ineffectivefor several days or weeks. The affected contraceptives include, but are not limited to, the usual contraceptive pills, most types of intrauterine devices, Depo-Provera shots, hormonal patches, and hormonal vaginal rings. If you are not sure, contact your primary care physician, your railroad brake operator, or your surgeon to check if this warning applies to you. You may need to have invasive monitoring, which includes the insertion of catheters into your veinsand arteries. This is done to measure pressures, to take blood samples, and may be used in emergentsituations for intravenous access. This monitoring has risks including, but not limited to, injury to your arteries, lung collapse, bleeding, nerve injury as well as the risks related to anesthesia. An esophageal probe may be used to monitor your heart, this monitor has risks which include sore throat, hoarseness, difficulty with swallowing, loosened or broken teeth and esophageal injury. Major complications are rare but could include , respiratory distress, an abnormal heartbeat, infection, and bleeding. As part of the consent to administer anesthesia authorization you will discuss the following with the anesthesia doctor and his/her associates: -your present condition and diagnosis as it pertains to anesthesia or sedation administration -a description of the proposed anesthetic/sedation technique or procedure to be used -significant risks and benefits of the proposed anesthetic/sedation technique or procedure -any applicable alternatives, including their risks and benefits -if applicable, use of back-up method of contraception for 30 days after discharge -if applicable, the option of having no treatment and the potential results of this -if your procedure is in an outpatient surgery setting-the risk associated with having this procedure in this type of setting should be discussed as well as the potential need for transfer to the hospital if necessary Please be sure to have all questions that you have answered prior to signing the consent to administer anesthesia. You can make your care safer by being an active, informed patient. It is important that you are involved in your health care. Being a good patient does not mean being a silent one. If you have questions, problems, safety concerns or unmet needs, please let us know if you would like further clarification of the "Patient Rights and Responsibilities" as they pertain to you, or would like more information regarding our complaint and for grievance process, please call the site where you receive care and request to speak withthe patient advocate line. [facility]: Contact # [phone] Directions to Surgical Suite in from the [place] Entrance The Surgical Waiting Room can be found in the Lobby [facility]. Enter through Main Lobby Entrance and the Waiting Room is directly in front of you. Proceed to check in and give them your name. Directions to Surgical Suite from the East Entrance Enter the East entrance and follow the hallway to the J elevator. Take the J elevator up to Level 1. Continue down the long hallway to the main [facility]. The Surgical Waiting Room will be on your Right. Proceed to check in and give them your Name. Directions to Surgical Suite from the Parking Garage Enter the [facility] lobby and proceed down the dc to the left. At the end of the dc, turn right. Continue down the long hallway to the main [facility]. The Surgical Waiting Room will be on your Right. Proceed to check in and give them your Name. THANK YOU FOR CHOOSING [facility]! documented in this encounter OR Notes * OR Surgeon - Jarret Augustin MD - 01/08/2024 10:03 AM EDT DATE: 01/08/2024 PATIENT: Aren Grove : 1975 SERVICE: Transplant and Liver Surgery SURGEON: Jarret Augustin MD TILT WALL SUPERVISOR(S): Rosalind Leung MD PRE-OP DIAGNOSIS: Liver mass POST-OP DIAGNOSIS: Same. ANESTHESIA: GET OPERATION: Laparoscopic, hand-assisted, partial liver resection (segment V), intraoperative ultrasound with duplex, and cholecystectomy FINDINGS: ~4-5 cm mass abutting the gallbladder Procedure: The patient was brought into the operating room and placed in the supine position on the operating room table with compression stockings with SCDs. The abdomen was prepped and draped in the usual sterile manner. A time-out was performed. An approximately 7 cm skin incision with a 15-blade scalpel was made in the midline. The hand port was place and the abdomen insufflated through a 12 mm trocar placed through the hand port. After this 60 cc of 0.25% bupivicaine with epinephrine mixed with 60 cc of saline was injected bilaterally asa TAP block (60 cc/side). After adequate insufflation, an additional 8-mm port was placed into the [place] under direct vision. The tumor was able to be palpated in segment V of the liver and was abutting the gallbladder. An intraoperative ultrasound with duplex was performed. The extent of the tumor within the liver was marked with the electrocautery. The gallbladder fundus was mobilized from the undersurface of the liver.The parenchyma of the liver was then divided with staplers. The specimen was removed. Hemostasis was obtained with the argon beam. After this the gallbladder was dissected "top down" and the cystic duct and artery clearly identified and clipped and divided. The gallbladder was removed through the hand port. Copious irrigation was then utilized. The fascia was closed using a running #1 PDS stitch in layers. The skin was closed with a running subcuticular stitch. Sterile dressings were applied. I was scrubbed and present for the entire case as described above. Specimens/Disposition: 1. Segment V of liver 2. Gallbladder Intraoperative Complications:None Patient Condition: Stable Disposition: PACU EBL - 200 cc PRBC - 0 U Cellsaver- 0 cc FFP - 0 Plt - 0 Cryo - 0 IV FLUIDS: 1200 ml crystalloid, 0 ml 5% albumin DRAINS: None Jarret Augustin MD 01/08/2024 10:03 AM documented in this encounter Miscellaneous Notes * Care Plan - Dali Ferrell RN - 01/09/2024 6:14 AM EDT Clinical Goal(s): pt will have adequate pain control (01/08/24 2215) Possible barriers to meeting goal(s)/advancing plan of care: recent abdominal surgery Stability of the patient: Moderately stable - low risk of patient condition declining or worsening Summary regarding today's goal(s): Not Met: Complaining of severe abdominal pain Recommendations: Consider advancing to higher pain regimen * Care Plan - Belen Stearns RN - 01/08/2024 11:22 PM EDT Clinical Goal(s): patient will have no falls today (01/08/24 1330) Possible barriers to meeting goal(s)/advancing plan of care: patient remains on bedrest today. Stability of the patient: Moderately stable - low risk of patient condition declining or worsening Summary regarding today's goal(s): Met: 01/08/24 Recommendations: goal met. Safety devices in place. * Ancillary Progress Note - Kristina Navarrete RRT - 01/08/2024 10:50 PM EDT Respiratory Care Services [address] [address] Name: Aren Grove Location: [address] Date: 01/08/2024 Time: 10:50 PM I asked the patient if she would like to wear nocturnal CPAP tonight. She refused and states that she would not like to wear it at all during her admission. I explained that I would remove the unit from her room. I also advised her to let her nurse know if she changes her mind and we would bring her a nocturnal CPAP unit at that time. * Respiratory Progress Note - Sneha Huang RRT - 01/08/2024 2:10 PM EDT PATIENT DRIVEN PROTOCOL - Respiratory [facility] Services [address] [id number] Name: Aren Grove Location: [address] Date: 01/08/2024 Time: 2:10 PM Patient Driven Protocol Summary: Initial evaluation performed. This Treatment Plan and medications will be reviewed by the Primary Care Team for any contraindications. Respiratory Care Treatment Plan Pulmonary Volume Expansion Therapy: Incentive Spirometry PRN to prevent or treat alveolar consolidation and atelectasis. . Secretion Management Treatment: Flutter TherapyPRN to enhance mobilization of secretions. . The patient will be re-evaluated: No re-evaluation needed. Indications for treatment met. The Triage Level is: (Assessment Score = 0 - 5) Level 5. Triage Level Definitions: Level 1 Severe Respiratory/Airway Compromise Level 2 Moderate Respiratory/Airway Compromise or high risk for pulmonary complications Level 3 Mild Respiratory/Airway Compromise or moderate risk for pulmonary complications Level 4 Episodic Respiratory/Airway Compromise or low risk for pulmonary complications Level 5 No Respiratory/Airway Compromise Triage 1 Triage 2 Triage 3 Triage 4 Triage 5 greater than 20 16 - 20 11 - 15 6 - 10 0 - 5 Medical Record Assessment Clinical Findings Pulmonary Status: 0 - No History Surgical Status: 2 - Lower Abdominal Chest X-Ray: 0 - Not Performed or performed greater than 3 days ago Assessment Score: 2 Patient Assessment Clinical Findings Respiratory Pattern: 0 - RR 12 - 20; Patient only gets breathless with strenuous exercise. Breath Sounds: 0 - Clear to auscultation Cough Effectiveness: 0 - Strong non-productive Sputum Production: 0 - No sputum production Level of Activity: 2 - Temporarily non-ambulatory O2 needed to keep SpO2 greater than or equal to 92%: 1 - Oxygen 1-3 LPM or FiO2 less than 35% Assessment Score: 3 Total Assessment Score: 5 Breath Sounds: Inspiratory and expiratory diminished bilaterally.. Cough and Sputum: An effective cough produced no sputum... CXR: n/a. Vital Signs: Resp: 16 (01/08/24 1255) Pulse: 79 (01/08/24 1255) Temp: 36.5 C (97.7 F) (01/08/24 1255) BP: 101/65 (01/08/24 1255) SpO2: 96 % (01/08/24 1255) PFT: Minimal Predicted IC: 0.747 L. Inspiratory capacity: 0.5 L. Primary Service: Transplant Services. Admitting Diagnosis: Liver mass, right lobe [R16.0] Pulmonary Diagnosis: ANNIA. Prescriptions/Home Medications/Durable Medical Equipment: nocturnal cpap . documented in this encounter Plan of Treatment Upcoming Encounters Date Type Department Care Team (Late st Contact Info) Description 01/25/2024 10:30 AM EDT [facility] [address] [place] [address] Adrián Recinos MD [address] [place] [address] Pending Results Name Type Priority Associated Diagnoses Date /Time SURGICAL PATHOLOGY Pathology Routine Liver mass, right lobe 01/08/2024 9:12 AM EDT Scheduled Orders Name Type Priority Associated Diagnoses Orde r Schedule SURGICAL PATHOLOGY Pathology Routine Liver mass, right lobe Release Upon Ordering for 1 Occurrences starting 01/08/2024 Health Maintenance Due Date Last Done Comments Lipid Panel 1975 Depression Screening 1987 HIV Screening 1990 Hepatitis C Screening 1993 DTaP,Tdap,and Td Vaccines (1 - Tdap) 1994 Hepatitis B (1 of 3 - 19+ 3-dose series) 1994 Pap Smear 1996 Cervical Cancer Screening 2005 HPV/Co-Test 2005 Mammogram 2015 Cologuard 2020 Colonoscopy 2020 Colorectal Cancer Screening 2020 Fecal Occult Blood Test 2020 Sigmoidoscopy 2020 Diabetes Screening 01/09/2027 01/10/2024, 0 01/09/2024, 01/08/2024, Additional history exists Influenza Vaccine (FLU shot) Completed , 05/18/2022, 04/22/2021, Additional history exists Pneumococcal Vaccine: Pediatrics (0 to 5 Years) and At-Risk Patients (6 to 64 Years) Aged Out 04/25/2023 No longer eligible based on patient's age to complete this topic COVID-19 Vaccine Completed 05/19/2023, 10/2021, 06/24/2021, Additional history exists GARDASIL-HPV IMMUNIZATION SERIES Aged Out No longer eligible based on patient's age to complete this topic MENINGOCOCCAL (MENACTRA/MENVEO) Aged Out No longer eligible based on patient's age to complete this topic documented as of this encounter Medical Devices Not on filedocumented as of this encounter Procedures Procedure Name Priority Date/Time Associated Diagnosis Comments HEPATIC FUNCTION PANEL Add-on 8:57 AM EDT BASIC METABOLIC PANEL STAT 01/10/2024 8:57 AM EDT PHOSPHORUS STAT 01/10/2024 8:57 AM EDT CBC STAT 01/10/2024 8:57 AM EDT MAGNESIUM STAT 01/10/2024 8:57 AM EDT COMPREHENSIVE METABOLIC PANEL Routine 01/09/2024 6:37 AM EDT PHOSPHORUS Routine 01/09/2024 6:37 AM EDT CBC STAT 01/09/2024 6:37 AM EDT MAGNESIUM Routine 01/09/2024 6:37 AM EDT COMPREHENSIVE METABOLIC PANEL Routine 01/08/2024 11:27 AM EDT PHOSPHORUS Routine 01/08/2024 11:27 AM EDT CBC STAT 01/08/2024 11:27 AM EDT MAGNESIUM Routine 01/08/2024 11:27 AM EDT GLUCOSE METER, POINT OF CARE MICHAEL 01/08/2024 11:03 AM EDT GLUCOSE METER, POINT OF CARE MICHAEL 01/08/2024 9:45 AM EDT GLUCOSE METER, POINT OF CARE MICHAEL 01/08/2024 7:23 AM EDT ABO/RH STAT 01/08/2024 7:13 AM EDT TYPE AND SCREEN Routine 01/08/2024 7:13 AM EDT HC COMPATIBILITY ELECTRONIC CROSSMATCH Routine 01/08/2024 7:05 AM EDT URINE SCREEN, POINT OF CARE (ENTER/EDIT) Routine 01/08/2024 6:00 AM EDT documented in this encounter Results * (ABNORMAL) HEPATIC FUNCTION PANEL (01/10/2024 8:57 AM EDT) Albumin 3.5(L) 3.8 - 5.0 g/dL 01/10/2024 11:01 AM EDT LABORATORY [facility] AST 97(H) 10 - 35 U/L 01/10/2024 11:01 AM EDT LAB[facility]AT[facility] Alkaline Phosphatase 74 35 - 130 U/L 01/10/2024 11:01 AM EDT LAB[facility]ATORY [facility] ALT 230(H) 10 - 35 U/L 01/10/2024 11:01 AM EDT [facility] Bilirubin, Total 0.3 <=1.2 mg/dL 01/10/2024 11:01 AM EDT LAB[facility]AT[facility] Bilirubin, Direct <0.2 0.0 - 0.3 mg/dL 01/10/2024 11:01 AM EDT [facility] Protein 6.1 6.0 - 8.3 g/dL 01/10/2024 11:01 AM EDT [facility]ORY [facility] Blood Venous blood specimen / Unknown Venipuncture / Unknown 01/10/2024 8:57 AM EDT 01/10/2024 9:25 AM EDT Irvin Dumont MD LAB BLOOD ORDMechelle LLANES Performing Organization Address City/[facility] Co de Phone Number LABORATORY [facility] [address] [place] [address] * (ABNORMAL) PHOSPHORUS (01/10/2024 8:57 AM EDT) Phosphorus 2.2(L) 2.5 - 4.8 mg/dL 01/10/2024 9:51 AM EDT LABORATORY [facility] Blood Venous blood specimen / Unknown Venipuncture / Unknown 01/10/2024 8:57 AM EDT 01/10/2024 9:25 AM EDT Irvin Dumont MD LAB BLOOD ORDE MARIO ALBERTO Performing Organization Address City/[facility]/ZIP Co de Phone Number LABORATORY [facility] [address] [place] [address] * MAGNESIUM (01/10/2024 8:57 AM EDT) Magnesium 2.1 1.5 - 2.6 mg/dL 01/10/2024 9:51 AM EDT LABORATORY [facility] Blood Venous blood specimen / Unknown Venipuncture / Unknown 01/10/2024 8:57 AM EDT 01/10/2024 9:25 AM EDT Irvin Dumont MD LAB BLOOD EDEN LLANES LABORATORY [facility] [address] [place] [address] * (ABNORMAL) BASIC METABOLIC PANEL (01/10/2024 8:57 AM EDT) BUN 14 6 - 20 mg/dL 01/10/2024 9:51 AM EDT LABORATORY [facility] Creatinine 0.9 0.5 - 1.0 mg/dL 01/10/2024 9:51 AM EDT LABORATORY [facility] Estimated Glomerular Filtration Rate 84 >=60 mL/min 01/10/2024 9:51 AM EDT LABORATORY C Comment:eGFR is calculated b ased on the CKD-EPI 2020 equation Sodium 138 135 - 146 mmol/L 01/10/2024 9:51 AM EDT LAB[facility]ATORY [facility] Potassium 3.7 3.5 - 5.1 mmol/L 01/10/2024 9:51 AM EDT LAB[facility]ATORY [facility] Chloride 106 98 - 107 mmol/L 01/10/2024 9:51 AM EDT LAB[facility]ATORY [facility] CO2 25 22 - 32 mmol/L 01/10/2024 9:51 AM EDT LAB[facility]ATORY [facility] Anion Gap 7 7 - 15 mmol/L 01/10/2024 9:51 AM EDT LAB[facility]ATORY [facility] Glucose 125(H) 70 - 120 mg/dL 01/10/2024 9:51 AM EDT LAB[facility]ATORY [facility] Calcium 8.2(L) 8.4 - 10.2 mg/dL 01/10/2024 9:51 AM EDT LABORATORY C Blood Venous blood specimen / Unknown Venipuncture / Unknown 01/10/2024 8:57 AM EDT 01/10/2024 9:25 AM EDT Irvin Dumont MD LAB BLOOD ORDE MARIO ALBERTO LABORATORY [facility] [address] [place] [address] * (ABNORMAL) CBC (01/10/2024 8:57 AM EDT) WBC 10.34 4.00 - 10.80 K/uL 01/10/2024 9:33 AM EDT LABORATORY [facility] RBC 3.73 3.85 - 5.15 M/uL 01/10/2024 9:33 AM EDT LABORATORY [facility] HGB 10.5(L) 12.0 - 15.3 g/dL 01/10/2024 9:33 AM EDT [facility] HCT 33.4(L) 36.0 - 45.2 % 01/10/2024 9:33 AM EDT LAB[facility]ATORY [facility] MCV 89.5 81.5 - 97.5 fL 01/10/2024 9:33 AM EDT LAB[facility]ATORY [facility] MCH 28.2 27.0 - 34.0 pg 01/10/2024 9:33 AM EDT LAB[facility]ATORY [facility] MCHC 31.4 32.0 - 36.0 g/dL 01/10/2024 9:33 AM EDT LAB[facility]ATORY [facility] RDW 14.8 11.5 - 15.5 % 01/10/2024 9:33 AM EDT LAB[facility]ATORY [facility] PLT 263 140 - 400 K/uL 01/10/2024 9:33 AM EDT LAB[facility]ORY [facility] MPV 9.4 6.6 - 11.1 fL 01/10/2024 9:33 AM EDT LAB[facility]ATORY [facility] nRBCs 0 <=0 /100 WBCs 01/10/2024 9:33 AM EDT [facility] Blood Venous blood specimen / Unknown Venipuncture / Unknown 01/10/2024 8:57 AM EDT 01/10/2024 9:25 AM EDT Irvin Dumont MD LAB BLOOD [facility] [address] [place] [address] * PHOSPHORUS (01/09/2024 6:37 AM EDT) Phosphorus 3.9 2.5 - 4.8 mg/dL 01/09/2024 7:17 AM EDT LABORATORY [facility] Blood Venous blood specimen / Unknown Venipuncture / Unknown 01/09/2024 6:37 AM EDT 01/09/2024 6:52 AM EDT Rosalind Leung MD LAB BLOOD ORDERABLES Performing Organization Address [facility] Co de Phone Number LABORATORY [facility] [address] [place] [address] * MAGNESIUM (01/09/2024 6:37 AM EDT) Pathologist [facility] Magnesium 2.2 1.5 - 2.6 mg/dL 01/09/2024 7:17 AM EDT LABORATORY [facility] Blood Venous blood specimen / Unknown Venipuncture / Unknown 01/09/2024 6:37 AM EDT 01/09/2024 6:52 AM EDT Rosalind Leung MD LAB BLOOD ORDERABLES Performing Organization Address [facility] de Phone Number LABORATORY [facility] [address] [place] [address] * (ABNORMAL) COMPREHENSIVE METABOLIC PANEL (01/09/2024 6:37 AM EDT) Pathologist [facility] BUN 13 6 - 20 mg/dL 01/09/2024 7:17 AM EDT LABORATORY [facility] Creatinine 0.8 0.5 - 1.0 mg/dL 01/09/2024 7:17 AM EDT LABORATORY [facility] Estimated Glomerular Filtration Rate 86 >=60 mL/min 01/09/2024 7:17 AM EDT LABORATORY C Comment:eGFR is calculated b ased on the CKD-EPI 2020 equation Sodium 136 135 - 146 mmol/L 01/09/2024 7:17 AM EDT LABORATORY [facility] Potassium 4.2 3.5 - 5.1 mmol/L 01/09/2024 7:17 AM EDT LABORATORY [facility] Chloride 105 98 - 107 mmol/L 01/09/2024 7:17 AM EDT LAB[facility]ATORY [facility] CO2 22 22 - 32 mmol/L 01/09/2024 7:17 AM EDT LAB[facility]ATORY [facility] Anion Gap 9 7 - 15 mmol/L 01/09/2024 7:17 AM EDT LAB[facility]ATORY [facility] Glucose 125(H) 70 - 120 mg/dL 01/09/2024 7:17 AM EDT LABORATORY [facility] Albumin 3.4(L) 3.8 - 5.0 g/dL 01/09/2024 7:17 AM EDT LAB[facility]ATORY [facility] AST 210(H) 10 - 35 U/L 01/09/2024 7:17 AM EDT LABORATORY [facility] Alkaline Phosphatase 62 35 - 130 U/L 01/09/2024 7:17 AM EDT LABORATORY [facility] Bilirubin, Total 0.6 <=1.2 mg/dL 01/09/2024 7:17 AM EDT LABORATORY [facility] Calcium 7.9(L) 8.4 - 10.2 mg/dL 01/09/2024 7:17 AM EDT LABORATORY [facility] Protein 5.9(L) 6.0 - 8.3 g/dL 01/09/2024 7:17 AM EDT LAB[facility]ATORY [facility] ALT 269(H) 10 - 35 U/L 01/09/2024 7:17 AM EDT LAB[facility]ATORY [facility] Blood Venous blood specimen / Unknown Venipuncture / Unknown 01/09/2024 6:37 AM EDT 01/09/2024 6:52 AM EDT Rosalind Leung MD LAB BLOOD ORDERABLES Performing Organization Address City/State/[facility] Co de Phone Number LABORATORY [facility] [address] [place] [address] * (ABNORMAL) CBC (01/09/2024 6:37 AM EDT) WBC 13.38(H) 4.00 - 10.80 K/uL 01/09/2024 7:04 AM EDT LABORATORY [facility] RBC 3.88 3.85 - 5.15 M/uL 01/09/2024 7:04 AM EDT LABORATORY [facility] HGB 10.9(L) 12.0 - 15.3 g/dL 01/09/2024 7:04 AM EDT LABORATORY [facility] HCT 34.1(L) 36.0 - 45.2 % 01/09/2024 7:04 AM EDT LABORATORY [facility] MCV 87.9 81.5 - 97.5 fL 01/09/2024 7:04 AM EDT LABORATORY [facility] MCH 28.1 27.0 - 34.0 pg 01/09/2024 7:04 AM EDT LABORATORY [facility] MCHC 32.0 32.0 - 36.0 g/dL 01/09/2024 7:04 AM EDT LABORATORY [facility] RDW 14.7 11.5 - 15.5 % 01/09/2024 7:04 AM EDT LABORATORY [facility] PLT 269 140 - 400 K/uL 01/09/2024 7:04 AM EDT LABORATORY [facility] MPV 9.3 6.6 - 11.1 fL 01/09/2024 7:04 AM EDT LABORATORY [facility] nRBCs 0 <=0 /100 WBCs 01/09/2024 7:04 AM EDT LAB[facility]ATORY [facility] Blood Venous blood specimen / Unknown Venipuncture / Unknown 01/09/2024 6:37 AM EDT 01/09/2024 6:52 AM EDT Rosalind Leung MD LAB BLOOD ORDERABLES [facility] [address] [place] [address] * PHOSPHORUS (01/08/2024 11:27 AM EDT) [facility] Signature Phosphorus 3.4 2.5 - 4.8 mg/dL 01/08/2024 12:07 PM EDT LABORATORY [facility] Blood Venous blood specimen / Unknown Venipuncture / Unknown 01/08/2024 11:27 AM EDT 01/08/2024 11:41 AM EDT Rosalind Leung MD LAB BLOOD ORDERABLES [facility] [address] [place] [address] * MAGNESIUM (01/08/2024 11:27 AM EDT) Magnesium 2.1 1.5 - 2.6 mg/dL 01/08/2024 12:07 PM EDT LABORATORY [facility] Blood Venous blood specimen / Unknown Venipuncture / Unknown 01/08/2024 11:27 AM EDT 01/08/2024 11:41 AM EDT Rosalind Leung MD LAB BLOOD ORDERABLES LABORATORY [facility] [address] [place] [address] * (ABNORMAL) COMPREHENSIVE METABOLIC PANEL (01/08/2024 11:27 AM EDT) BUN 16 6 - 20 mg/dL 01/08/2024 12:07 PM EDT LABORATORY C Creatinine 0.8 0.5 - 1.0 mg/dL 01/08/2024 12:07 PM EDT LABORATORY [facility] Estimated Glomerular Filtration Rate 88 >=60 mL/min 01/08/2024 12:07 PM EDT LABORATORY C Comment:eGFR is calculated b ased on the CKD-EPI 2020 equation Sodium 139 135 - 146 mmol/L 01/08/2024 12:07 PM EDT LABORATORY [facility] Potassium 4.0 3.5 - 5.1 mmol/L 01/08/2024 12:07 PM EDT LABORATORY [facility] Chloride 103 98 - 107 mmol/L 01/08/2024 12:07 PM EDT LAB[facility]ATORY [facility] CO2 22 22 - 32 mmol/L 01/08/2024 12:07 PM EDT LAB[facility]ATORY [facility] Anion Gap 14 7 - 15 mmol/L 01/08/2024 12:07 PM EDT LAB[facility]ATORY [facility] Glucose 178(H) 70 - 120 mg/dL 01/08/2024 12:07 PM EDT LABORATORY [facility] Albumin 3.6(L) 3.8 - 5.0 g/dL 01/08/2024 12:07 PM EDT LABORATORY C AST 106(H) 10 - 35 U/L 01/08/2024 12:07 PM EDT LABORATORY [facility] Alkaline Phosphatase 59 35 - 130 U/L 01/08/2024 12:07 PM EDT LABORATORY [facility] Bilirubin, Total 0.3 <=1.2 mg/dL 01/08/2024 12:07 PM EDT LABORATORY [facility] Calcium 7.6(L) 8.4 - 10.2 mg/dL 01/08/2024 12:07 PM EDT LAB[facility]ATORY [facility] Protein 5.9(L) 6.0 - 8.3 g/dL 01/08/2024 12:07 PM EDT LAB[facility]ATORY [facility] ALT 119(H) 10 - 35 U/L 01/08/2024 12:07 PM EDT LAB[facility]ATORY [facility] Blood Venous blood specimen / Unknown Venipuncture / Unknown 01/08/2024 11:27 AM EDT 01/08/2024 11:41 AM EDT Rosalind Leung MD LAB BLOOD ORDERABLES [facility] [address] [place] [address] * (ABNORMAL) CBC (01/08/2024 11:27 AM EDT) WBC 13.41(H) 4.00 - 10.80 K/uL 01/08/2024 11:45 AM EDT LABORATORY [facility] RBC 4.01 3.85 - 5.15 M/uL 01/08/2024 11:45 AM EDT LAB[facility]ATORY [facility] HGB 11.5(L) 12.0 - 15.3 g/dL 01/08/2024 11:45 AM EDT LABORATORY [facility] HCT 34.9(L) 36.0 - 45.2 % 01/08/2024 11:45 AM EDT LABORATORY [facility] MCV 87.0 81.5 - 97.5 fL 01/08/2024 11:45 AM EDT LABORATORY [facility] MCH 28.7 27.0 - 34.0 pg 01/08/2024 11:45 AM EDT LABORATORY [facility] MCHC 33.0 32.0 - 36.0 g/dL 01/08/2024 11:45 AM EDT LABORATORY [facility] RDW 14.5 11.5 - 15.5 % 01/08/2024 11:45 AM EDT LABORATORY [facility] PLT 274 140 - 400 K/uL 01/08/2024 11:45 AM EDT LABORATORY [facility] MPV 9.2 6.6 - 11.1 fL 01/08/2024 11:45 AM EDT LABORATORY [facility] nRBCs 0 <=0 /100 WBCs 01/08/2024 11:45 AM EDT LABORATORY [facility] Blood Venous blood specimen / Unknown Venipuncture / Unknown 01/08/2024 11:27 AM EDT 01/08/2024 11:41 AM EDT Rosalind Leung MD LAB BLOOD ORDERABLES LABORATORY [facility] [address] [place] [address] * (ABNORMAL) GLUCOSE METER, POINT OF CARE (01/08/2024 11:03 AM EDT) Glucose Meter 167(H) 70 - 120 mg/dL 01/08/2024 11:05 AM EDT [facility] Blood Whole blood specimen / Unknown 01/08/2024 11:03 AM EDT 01/08/2024 11:05 AM EDT Jarret Augustin MD LAB POINT OF CA RE TEST DOCKED DEVICE UNSOLICITED RESULTS Performing Organization Address City/[facility]/ZIP Co de Phone Number [facility] [address] [place] [address] * (ABNORMAL) GLUCOSE METER, POINT OF CARE (01/08/2024 9:45 AM EDT) Glucose Meter 188(H) 70 - 120 mg/dL 01/08/2024 9:48 AM EDT [facility] Blood Whole blood specimen / Unknown 01/08/2024 9:45 AM EDT 01/08/2024 9:48 AM EDT Jarret Augustin MD LAB POINT OF CA RE TEST DOCKED DEVICE UNSOLICITED RESULTS [facility] [address] [place] [address] * GLUCOSE METER, POINT OF CARE (01/08/2024 7:23 AM EDT) [facility] Glucose Meter 98 70 - 120 mg/dL 01/08/2024 7:26 AM EDT [facility] Blood Whole blood specimen / Unknown 01/08/2024 7:23 AM EDT 01/08/2024 7:26 AM EDT Jarret Augustin MD LAB POINT OF CA RE TEST DOCKED DEVICE UNSOLICITED RESULTS Performing Organization Address City/[facility]/ZIP Co de Phone Number [facility] [address] [place] [address] * ABO/RH (01/08/2024 7:13 AM EDT) Pathologist [facility] ABO A 01/08/2024 8:43 AM EDT LABORATORY [facility] BLOOD BANK Rh Positive 01/08/2024 8:43 AM EDT LABORATORY [facility] BLOOD BANK Blood Venous blood specimen / Unknown Venipuncture / Unknown 01/08/2024 7:13 AM EDT 01/08/2024 7:27 AM EDT Jinny Garcia DO LAB BLOOD BAN K TEST ORDERABLES LABORATORY [facility] BLOOD BANK [address] [place] [address] * TYPE AND SCREEN (01/08/2024 7:13 AM EDT) Pathologist [facility] ABO A 01/08/2024 8:27 AM EDT LABORATORY [facility] BLOOD BANK Rh Positive 01/08/2024 8:27 AM EDT LABORATORY [facility] BLOOD BANK Red Blood Cell Antibody Screen Negative 01/08/2024 8:27 AM EDT LABORATORY [facility] BLOOD BANK Specimen Expiration Date 01/11/2024 23:59 01/08/2024 8:27 AM EDT LABORATORY [facility] BLOOD BANK Blood Venous blood specimen / Unknown Venipuncture / Unknown 01/08/2024 7:13 AM EDT 01/08/2024 7:27 AM EDT Jinny Garcia DO LAB BLOOD BAN K TEST ORDERABLES LABORATORY [facility] BLOOD BANK [address] [place] [address] * PREPARE PACKED RED BLOOD CELLS (01/08/2024 7:05 AM EDT) Unit Product Code [id number] 01/08/2024 6:40 PM EDT LAB[facility]ATORY [facility] BLOOD BANK Unit Number [id number] 01/08/2024 6:40 PM EDT LAB[facility]ATORY [facility] BLOOD BANK Unit ABO A 01/08/2024 6:40 PM EDT LAB[facility]ATORY [facility] BLOOD BANK Unit Rh POS 01/08/2024 6:40 PM EDT LAB[facility]ATORY [facility] BLOOD BANK Unit Crossmatch Compatible 01/08/2024 8:53 AM EDT LAB[facility]ATORY [facility] BLOOD BANK Unit Status RE 01/08/2024 6:40 PM EDT LAB[facility]ATORY [facility] BLOOD BANK Unit Blood Type APOS 01/08/2024 6:40 PM EDT LAB[facility]ATORY [facility] BLOOD BANK Unit Expiration [id number] 01/08/2024 6:40 PM EDT LAB[facility]ATORY [facility] BLOOD BANK Unit Barcode 6200 01/08/2024 6:40 PM EDT LAB[facility]ATORY [facility] BLOOD BANK Unit Product Code [id number] 01/08/2024 6:40 PM EDT LABORATORY [facility] BLOOD BANK Unit Number [id number] 01/08/2024 6:40 PM EDT LAB[facility]ATORY [facility] BLOOD BANK Unit ABO A 01/08/2024 6:40 PM EDT LAB[facility]ATORY [facility] BLOOD BANK Unit Rh POS 01/08/2024 6:40 PM EDT LAB[facility]ATORY [facility] BLOOD BANK Unit Crossmatch Compatible 01/08/2024 8:53 AM EDT LAB[facility]ATORY [facility] BLOOD BANK Unit Status RE 01/08/2024 6:40 PM EDT LAB[facility]ATORY [facility] BLOOD BANK Unit Blood Type APOS 01/08/2024 6:40 PM EDT LABORATORY [facility] BLOOD BANK Unit Expiration [id number] 01/08/2024 6:40 PM EDT LABORATORY [facility] BLOOD BANK Unit Barcode 6200 01/08/2024 6:40 PM EDT LABORATORY [facility] BLOOD BANK 01/08/2024 7:05 AM EDT Jinny Garcia DO BLD BANK PROD UCT ORDERABLES LABORATORY [facility] BLOOD BANK [address] [place] [address] * URINE SCREEN, POINT OF CARE (ENTER/EDIT) (01/08/2024 6:00 AM EDT) hCG Beta, Urine Negative Negative Procedural Control Valid? Yes Lot Number [id number] Expiration Date 2025-01-19 Urine 01/08/2024 6:00 AM EDT Jarret Augustin MD LAB POINT OF CA RE TEST ENTER/EDIT ORDERABLES documented in this encounter Visit Diagnoses Diagnosis Liver mass, right lobe- Primary Unspecified disorder of liver Liver mass, right lobe Unspecified disorder of liver documented in this encounter Administered Medications Inactive Administered Medications - up to 3 most recent administrations Medication Order MAR Action Action Date Dose Rate Site Acetaminophen (Tylenol) tab 650 mg 650 mg, Oral, Q6H, First dose on Thu01/08/24 at 1200, Last dose on Thu01/13/24 at 0600, For 5 days, Maximum 4 g acetaminophen/day. Avoid in patients with severe hepatic impairment or severe active liver disease. Use for 5 days., Post-op Given 01/10/2024 11:31 AM EDT 650 mg Given 01/10/2024 5:30 AM EDT 650 mg Given 01/09/2024 11:16 PM EDT 650 mg Bisacodyl (Dulcolax) supp 10 mg 10 mg, Rectal, ONCE, On 01/10/24 at 0930, For 1 dose Given 01/10/2024 9:49 AM EDT 10 mg cyclobenzaprine (Flexeril) 5 mg tab 5 mg, Oral, TID(AM/NOON/HS), First dose on 01/09/24 at 1100, Until Discontinued Given 01/10/2024 5:31 AM EDT 5 mg Given 01/09/2024 11:28 AM EDT 5 mg Docusate Sodium (Colace) cap 100 mg 100 mg, Oral, BID (.AM/PM), First dose on Thu01/08/24 at 2100, Until Discontinued, For oral administration ONLY, if route of administration is other than oral and alternative product must be ordered., Post-op Given 01/10/2024 7:5 3 AM EDT 100 mg Given 01/09/2024 9:19 PM EDT 100 mg Given 01/09/2024 8:22 AM EDT 100 mg Gabapentin (Neurontin) cap 300 mg 300 mg, Oral, Q12H, First dose on Thu01/08/24 at 2100, Until Discontinued, Post-op Given 01/10/2024 7:53 AM EDT 300 mg Given 01/09/2024 9:19 PM EDT 300 mg Given 01/09/2024 8:22 AM EDT 300 mg HYDROmorphone (Dilaudid) inj 0.5 mg 0.5 mg, IV Push, Q15 MIN PRN Pain, Moderate, Pain, Severe, Starting on Thu01/08/24 at 0922, Until Thu01/08/24 at 1132, For 3 doses, Administer only postop in PACU. Hold for respiratory rate less than 12. Administer up to a total of 1.5 mg., PACU Given 01/08/2024 11:32 AM EDT 0 .5 mg Given 01/08/2024 11:17 AM EDT 0.5 mg Given 01/08/2024 11:02 AM EDT 0.5 mg keTORolac (Toradol) 30 MG/ML inj 15 mg 15 mg, IV Push, Q6H, First dose on Thu01/08/24 at 1200, Last dose on Thu01/11/24 at 0600, For 3 days Given 01/10/2024 5:50 AM EDT 15 mg Given 01/09/2024 11:38 PM EDT 15 mg Given 01/09/2024 6:12 PM EDT 15 mg lamoTRIgine (LaMICtal) tab 100 mg 100 mg, Oral, BID (.AM/PM), First dose on Thu01/08/24 at 2100, Until Discontinued Given 01/10/2024 7:53 AM EDT 100 mg Given 01/09/2024 9:19 PM EDT 100 mg Given 01/09/2024 8:35 AM EDT 100 mg Lidocaine (Aspercreme) 4 % patch 1 Patch 1 Patch, Transdermal, Daily(AM), First dose on Thu01/08/24 at 1145, Until Discontinued, AVOID placing directly over open wounds or surgical sites Apply patch for 12 hours then remove for 12 hours! Remove any Lidocaine patches the patient may currently be wearing prior to applying the new patch Patch Applied 01/10/2024 7:55 AM EDT 1 Patch Abdomen Right Upper Patch Applied 01/09/2024 8:36 AM EDT 1 Patch Abdomen Right Upper Patch Applied 01/08/2024 12:03 PM EDT 1 Patch Abdomen Left Lower melatonin tab 3 mg 3 mg, Oral, HS PRN Sleep, Starting on Thu01/08/24 at 1057, Until 01/10/24 at 1841, Post-op NSS infusion Intravenous, at 50 mL/hr, CONTINUOUS, Starting on Thu01/08/24 at 1145, Until 01/09/24 at 1231, Post-op Rate Verify 01/09/2024 10:17 AM EDT 50 mL/hr Rate Verify 01/09/2024 6:00 AM EDT 50 mL/hr New Bag 01/09/2024 5:41 AM EDT 50 mL/hr omeprazole (PriLOSEC) cap 40 mg 40 mg, Oral, Daily(AM), First dose on Thu01/08/24 at 1145, Until Discontinued, This med should NOT be Crushed or Chewed Given 01/10/2024 7:53 AM EDT 40 mg Given 01/09/2024 8:22 AM EDT 40 mg ondansetron (Zofran) inj 4 mg 4 mg, IV Push, Q6H PRN Other, May use for nausea or vomiting if patient unable to take oral ondansetron, Starting on Thu01/08/24 at 1057, Until 01/10/24 at 1841, Post-op ondansetron ODT (Zofran) tab 4 mg 4 mg, On Tongue, Q6H PRN Nausea, Vomiting, Starting on Thu01/08/24 at 1057, Until 01/10/24 at 1841, Post-op oxyCODONE (Oxy IR) tab 10 mg 10 mg, Oral, Q4H PRN Pain, Severe, Starting on Thu01/08/24 at 1059, Until 01/10/24 at 0842, Hold for somnolence or respiratory rate less than 10, Post-op Given 01/09/2024 3:48 PM EDT 10 mg Given 01/09/2024 9:46 AM EDT 10 mg Given 01/09/2024 2:56 AM EDT 10 mg oxyCODONE (Oxy IR) tab 5 mg 5 mg, Oral, Q4H PRN Pain, Moderate, Starting on Thu01/08/24 at 1059, Until Thu01/10/24 at 1841, Hold for somnolence or respiratory rate less than 10, Post-op Piperacillin-Tazobactam (Zosyn) 4.5 g in 100 mL NSS ivpb (FOUR hour infusion) IV Piggyback, 4.5 g, Q8HNOW, 3 doses, First dose on Thu01/08/24 at 1600, Last dose on Thu01/09/24 at 0800, Administer over 4 Hours, at 26.25 mL/hr Rate Verify 01/09/2024 10:17 AM EDT 1.125 g/hr 26.25 mL/hr New Bag 01/09/2024 8:41 AM EDT 4.5 g 26.25 mL/hr Restarted 01/09/2024 12:07 AM EDT 1.125 g/hr 26.25 mL/hr Polyethylene Glycol 3350 (Miralax) oral powder 17 g 17 g (1 Packet), Oral, ONCE, On Thu01/10/24 at 0930, For 1 dose, Mix in 8 oz of water, juice, soda, coffee, or tea. Given 01/10/2024 9:48 AM EDT 17 g senna (Senokot) 2 Tablet 2 Tablet, Oral, Daily(AM), First dose on Thu01/08/24 at 1145, Until Discontinued, hold if patient have loose stool or frequent bowel movements, Post-op Given 01/10/2024 7:54 AM EDT 2 Tablets Given 01/09/2024 8:22 AM EDT 2 Tablets Given 01/08/2024 4:30 PM EDT 2 Tablets traMADol (Ultram) tab 50 mg 50 mg, Oral, Q6H PRN Pain, Severe, Starting on Thu01/10/24 at 0900, Until Thu01/10/24 at 1841 traMADol ER (Ultram ER) tab 200 mg 200 mg, Oral, Daily(AM), First dose (after last modification) on 01/09/24 at 0900, Until Discontinued, Administer POD 1, Post-op Given 01/10/2024 7:5 3 AM EDT 200 mg Given 01/09/2024 8:22 AM EDT 200 mg documented in this encounter Active and Recently Administered Medications Times are shown in EDT. Scheduled Medication Order 01/08/2024 01/09/2024 01/10/2024 Acetaminophen (Tylenol) tab 650 mg 650 mg, Oral, Q6H, First dose on Thu01/08/24 at 1200, Last dose on Thu01/13/24 at 0600, For 5 days, Maximum 4 g acetaminophen/day. Avoid in patients with severe hepatic impairment or severe active liver disease. Use for 5 days., Post-op 1200 (OR/Procedure - Provider: Belen Stearns RN)1630 (Given - Provider: Belen Stearns RN)2352 (Given - Provider: Dali Ferrell RN) 0528 (Given - Provider: Dali Ferrell RN)1127 (Given - Provider: Nnamdi Jones RN)1812 (Given - Provider: Nnamdi Jones RN)2316 (Given - Provider: Belen Cain LPN) 0530 (Given - Provider: Belen Cain LPN)1131 (Given - Provider: Maisha Velasquez, YESSICA) Bisacodyl (Dulcolax) supp 10 mg (COMPLETED) 10 mg, Rectal, ONCE, On 01/10/24 at 0930, For 1 dose 0949 (Given - Provider: Maisha Velasquez, YESSICA) cyclobenzaprine (Flexeril) 5 mg tab (CANCELED) 5 mg, Oral, TID(AM/NOON/HS), First dose on 01/09/24 at 1100, Until Discontinued 1128 (Given - Provider: Nnamdi Jones, YESSICA)2200 (Not Given - Provider: Belen Cain LPN - Reason: Refused-Notify Provider) 0531 (Given - Provider: Belen Cain LPN) Docusate Sodium (Colace) cap 100 mg 100 mg, Oral, BID (.AM/PM), First dose on Thu01/08/24 at 2100, Until Discontinued, For oral administration ONLY, if route of administration is other than oral and alternative product must be ordered., Post-op 2150 (Given - Provider: Belen Stearns RN) 821 (Given - Provider: Nnamdi Jones RN)2118 (Given - Provider: Belen Cain LPN) 075 (Given - Provider: Maisha Velasquez RN) Gabapentin (Neurontin) cap 300 mg (CANCELED) 300 mg, Oral, Q12H, First dose on Thu01/08/24 at 2100, Until Discontinued, Post-op 2150 (Given - Provider: Belen Stearns RN) 821 (Given - Provider: Nnamdi Jones RN)2118 (Given - Provider: Belen Cain LPN) 0753 (Given - Provider: Maisha Velasquez RN) keTORolac (Toradol) 30 MG/ML inj 15 mg (CANCELED) 15 mg, IV Push, Q6H, First dose on Thu01/08/24 at 1200, Last dose on Thu01/11/24 at 0600, For 3 days 1151 (Given - Provider: Loli Felix RN)1733 (Given - Provider: Belen Stearns RN)2350 (Given - Provider: Dali Ferrell, YESSICA) 0528 (Given - Provider: Dali Ferrell, YESSICA)1128 (Given - Provider: Nnamdi Jones RN)1812 (Given - Provider: Nnamdi Jones RN)2338 (Given - Provider: Dali Ferrell, YESSICA) 0550 (Given - Provider: Dali Ferrell, YESSICA) lamoTRIgine (LaMICtal) tab 100 mg 100 mg, Oral, BID (.AM/PM), First dose on Thu01/08/24 at 2100, Until Discontinued 2150 (Given - Provider: Belen Stearns RN) 08 (Given - Provider: Nnamdi Jones RN)2118 (Given - Provider: Belen Cain LPN) 0753 (Given - Provider: Maisha Velasquez RN) Lidocaine (Aspercreme) 4 % patch 1 Patch 1 Patch, Transdermal, Daily(AM), First dose on Thu01/08/24 at 1145, Until Discontinued, AVOID placing directly over open wounds or surgical sites Apply patch for 12 hours then remove for 12 hours! Remove any Lidocaine patches the patient may currently be wearing prior to applying the new patch 1203 (Patch Applied - Provider: Loli Felix RN) 0003 (Patch Removed - Provider: Dali Ferrell RN)0836 (Patch Applied - Provider: Nnamdi Jones RN)2036 (Patch Removed - Provider: Belen Cain LPN) 0755 (Patch Applied - Provider: Maisha Velasquez, YESSICA)1441 (Due: Patch Removed - Provider: Discharge, Physician - Comment: Time automatically adjusted from order being discontinued) omeprazole (PriLOSEC) cap 40 mg 40 mg, Oral, Daily(AM), First dose on Thu01/08/24 at 1145, Until Discontinued, This med should NOT be Crushed or Chewed 1409 (Not Given - Provider: Belen Stearns RN - Reason: Parameter(s) Not Met - Comment: patient took her med this am and did not want this) 0822 (Given - Provider: Nnamdi Jones RN) 0753 (Given - Provider: Maisha Velasquez RN) Piperacillin-Tazobactam (Zosyn) 4.5 g in 100 mL NSS ivpb (FOUR hour infusion) (COMPLETED) IV Piggyback, 4.5 g, Q8HNOW, 3 doses, First dose on Thu01/08/24 at 1600, Last dose on Thu01/09/24 at 0800, Administer over 4 Hours, at 26.25 mL/hr 1629 (New Bag - Provider: Belen Stearns RN)2029 (Stopped - Provider: Belen Stearns RN) 0001 (New Bag - Provider: Dali Ferrell RN)0004 (Paused - Provider: Dali Ferrell RN)0007 (Restarted - Provider: Dali Ferrell RN)0407 (Stopped - Provider: Dali Ferrell RN)0841 (New Bag - Provider: Nnamdi Jones RN)1017 (Rate Verify - Provider: Nnamdi Jones RN) Piperacillin-Tazobactam (Zosyn) 4.5 g in 100 mL NSS ivpb (HALF hour infusion) (COMPLETED) IV Piggyback, 4.5 g, ONCE, 1 dose, On Thu01/08/24 at 0730, Administer over 30 Minutes, To give in the OR for surgical ppx NOT on floor of preop, Intra-Op 0752 (Given - Provider: Jinny Garcia DO) Polyethylene Glycol 3350 (Miralax) oral powder 17 g (COMPLETED) 17 g (1 Packet), Oral, ONCE, On 01/10/24 at 0930, For 1 dose, Mix in 8 oz of water, juice, soda, coffee, or tea. 0948 (Given - Provider: Maisha Velasquez, YESSICA) senna (Senokot) 2 Tablet 2 Tablet, Oral, Daily(AM), First dose on Thu01/08/24 at 1145, Until Discontinued, hold if patient have loose stool or frequent bowel movements, Post-op 1630 (Given - Provider: Belen Stearns RN) 0822 (Given - Provider: Nnamdi Jones RN) 0754 (Given - Provider: Maisha Velasquez, YESSICA) traMADol ER (Ultram ER) tab 200 mg (CANCELED) 200 mg, Oral, Daily(AM), First dose (after last modification) on 01/09/24 at 0900, Until Discontinued, Administer POD 1, Post-op 0822 (Given - Provider: Nnamdi Jones RN) 0753 (Given - Provider: Maisha Velasquez, YESSICA) Continuous Medication Order 01/08/2024 01/09/2024 01/10/2024 NSS infusion (CANCELED) Intravenous, at 50 mL/hr, CONTINUOUS, Starting on Thu01/08/24 at 1145, Until 01/09/24 at 1231, Post-op 1232 (New Bag - Provider: Loli Felix RN)1358 (Rate Verify - Provider: Belen Stearns RN)1400 (New Bag - Provider: Belen Stearns RN)2311 (Rate Verify - Provider: Belen Stearns RN)2332 (Rate Verify - Provider: Belen Stearns RN) 0540 (Stopped - Provider: Dali Ferrell RN)0541 (New Bag - Provider: Dali Ferrell RN)0600 (Rate Verify - Provider: Dali Ferrell RN)1017 (Rate Verify - Provider: Nnamdi Jones, YESSICA)1231 (Stopped - Provider: Nnamdi Jones, YESSICA) PRN Medication Order 01/08/2024 01/09/2024 01/10/2024 BUPivacaine-EPINEPHrine 0.25 % 60 mL in NSS 60 mL iv soln (CANCELED) ONCE PRN INTRA PROCEDURE, Starting on Thu01/08/24 at 0720, Until Thu01/08/24 at 1053, Intra-Op 0815 (Given - Provider: Jarret Augustin MD) HYDROmorphone (Dilaudid) inj 0.5 mg (COMPLETED) 0.5 mg, IV Push, Q15 MIN PRN Pain, Moderate, Pain, Severe, Starting on Thu01/08/24 at 0922, Until Thu01/08/24 at 1132, For 3 doses, Administer only postop in PACU. Hold for respiratory rate less than 12. Administer up to a total of 1.5 mg., PACU 1102 (Given - Provider: Nayely Jensen, YESSICA)1117 (Given - Provider: Nayely Jensen, YESSICA)1132 (Given - Provider: Nayely Jensen, YESSICA) melatonin tab 3 mg 3 mg, Oral, HS PRN Sleep, Starting on Thu01/08/24 at 1057, Until 01/10/24 at 1841, Post-op ondansetron (Zofran) inj 4 mg(Linked Group 1) 4 mg, IV Push, Q6H PRN Other, May use for nausea or vomiting if patient unable to take oral ondansetron, Starting on Thu01/08/24 at 1057, Until 01/10/24 at 1841, Post-op ondansetron ODT (Zofran) tab 4 mg(Linked Group 1) 4 mg, On Tongue, Q6H PRN Nausea, Vomiting, Starting on Thu01/08/24 at 1057, Until 01/10/24 at 1841, Post-op oxyCODONE (Oxy IR) tab 10 mg (CANCELED) 10 mg, Oral, Q4H PRN Pain, Severe, Starting on Thu01/08/24 at 1059, Until 01/10/24 at 0842, Hold for somnolence or respiratory rate less than 10, Post-op 2151 (Given - Provider: Belen Stearns, RN) 0256 (Given - Provider: Dali Ferrell, YESSICA)0946 (Given - Provider: Nnamdi Jones, RN)1548 (Given - Provider: Nnamdi Jones, YESSICA) oxyCODONE (Oxy IR) tab 5 mg 5 mg, Oral, Q4H PRN Pain, Moderate, Starting on Thu01/08/24 at 1059, Until 01/10/24 at 1841, Hold for somnolence or respiratory rate less than 10, Post-op traMADol (Ultram) tab 50 mg 50 mg, Oral, Q6H PRN Pain, Severe, Starting on 01/10/24 at 0900, Until 01/10/24 at 1841 Linked Groups Order Group 1: ondansetron ODT (Zofran) tab 4 mgJump to med 4 mg, On Tongue, Q6H PRN Nausea, Vomiting, Starting on Thu01/08/24 at 1057, Until 01/10/24 at 1841, Post-op Or ondansetron (Zofran) inj 4 mgJump to med 4 mg, IV Push, Q6H PRN Other, May use for nausea or vomiting if patient unable to take oral ondansetron, Starting on Thu01/08/24 at 1057, Until 01/10/24 at 1841, Post-op documented in this encounter Advance Directives * Full Code (Latest Code Status on File) Date Activated Date Inactivated Comments 01/08/2024 11:01 AM 01/10/2024 6:46 PM This order r eflects the patients wishes and were consensually agreed upon. Question Answer Comments Discussion of Advance Directives occurred with: Patient Care Teams Product Demonstrator Relationship Specialty Start Date End Date Martha Torres CRNP [address] [place] [address] Dr Vargas [address] [place] [address], [place] [address] PCP - General Nurse Practitioner 02/22/18 documented as of this encounter
--- OUTSIDE RECORDS SUMMARY | 2024-01-13 12:08 | External Medical Summary ---
Author Name Unknown Address Unknown Organization K01:[facility] [address] [place] [address] Laboratory Report Ordering Provider Test Date Status ELIAS GONZALEZ 01/08/2024 11:27:00 Final Observation Date Value Abnormality Reference (Units ) Status Magnesium 01/08/2024 11:27:00 2.1 1.5-2.6 (m g/dL) Final Performing Location [facility] [address] [place] [address]
--- OUTSIDE RECORDS SUMMARY | 2024-01-13 12:08 | External Medical Summary ---
Author Name Unknown Address Unknown Organization K01:[facility] - [address] [place] [address] Laboratory Report Ordering Provider Test Date Status ELIER OWMACK 01/10/2024 08:57:00 Final Observation Date Value Abnormality Reference (Units ) Status Phosphate 01/10/2024 08:57:00 2.2 Below low normal 2.5 -4.8 (mg/dL) Final Performing Location [facility] - [address] [place] [address]
--- OUTSIDE RECORDS SUMMARY | 2024-01-13 12:08 | External Medical Summary ---
Author Name Unknown Address Unknown Organization K01:[facility] [address] [place] [address] Laboratory Report Ordering Provider Test Date Status ELIER WOMACK 01/10/2024 08:57:00 Final Observation Date Value Abnormality Reference (Units ) Status Magnesium 01/10/2024 08:57:00 2.1 1.5-2.6 (m g/dL) Final Performing Location [facility] - [address] [place] [address]
--- OUTSIDE RECORDS SUMMARY | 2024-01-13 12:08 | External Medical Summary ---
Author Name Unknown Address Unknown Organization K01:[facility]ATORY [place] [address] [facility] [address] [facility] [address] Laboratory Report Ordering Provider Test Date Status ELIAS GONZALEZ 01/09/2024 06:37:00 Final Observation Date Value Abnormality Reference (Units ) Status WBC, Total 01/09/2024 06:37:00 13.38 Above high normal 4.00-10.80 (K/uL) Final RBC 01/09/2024 06:37:00 3.88 3.85-5.15 (M/uL) Final Hemoglobin 01/09/2024 06:37:00 10.9 Below low normal 12.0-15.3 (g/dL) Final HCT 01/09/2024 06:37:00 34.1 Below low normal 36.0-45.2 (%) Final MCV 01/09/2024 06:37:00 87.9 81.5-97.5 (fL) Final MCH 01/09/2024 06:37:00 28.1 27.0-34.0 (pg) Final MCHC 01/09/2024 06:37:00 32.0 32.0-36.0 (g/dL) Final RDW 01/09/2024 06:37:00 14.7 11.5-15.5 (%) Final Platelets 01/09/2024 06:37:00 269 140-400 (K/uL) Final MPV 01/09/2024 06:37:00 9.3 6.6-11.1 (fL) Final Nucleated erythrocytes/100 leukocytes [Ratio] in Blood by Automated count 01/09/2024 06:37:00 0 <=0 (/100 WBCs) Final Performing Location LABORATORY [facility] - [facility] [place] [address]
--- OUTSIDE RECORDS SUMMARY | 2024-01-13 12:08 | External Medical Summary | Summary of Care ---
Author Name Unknown Organization [facility] Address [address] [place] [address] Phone [phone] Care Team Providers Care Senior Operations Analyst Name Role Phone MelissaAnujgisele POLLARD Primary Care Provider Reason for Visit * Reason Onset Date Comments Advice 01/12/2024 Encounter Details Date Type Department Care Team (Late st Contact Info) Description 01/12/2024 Telephone [facility] General Surgery [address], [place] [id number] Irvin Townsend MD [address], [place] [id number] Advice Allergies No known active allergiesdocumented as of this encounter (statuses as of 01/12/2024) Medications Medication Sig Dispensed Refills Start Date End Date Status lansoprazole DR (PREVACID) 30 MG CPDR Take 1 Capsule by mouth every other day. 1 01/19/2018 Active lamoTRIgine 100 MG Oral Tablet (LaMICtal) Take 1 Tablet by mouth in the morning and 1 Tablet before bedtime. Active Vitamin D (Ergocalciferol) 1.25 MG (28680 UT) Oral Capsule (Drisdol) Take 1 Capsule [...] as of this encounter (statuses as of 01/12/2024) Active Problems Problem Noted Date Diagnosed Date Liver mass, right lobe 10/26/2023 documented as of this encounter (statuses as of 01/12/2024) Immunizations Name Administration Dates Next Due HEP [...] on file documented as of this encounter Functional Status Functional Status Response [...] No 01/08/2024 documented as of this encounter Miscellaneous Notes * Telephone Encounter - Irvin Townsend MD - 01/12/2024 1:00 PM EDT After connecting to the patient via telephone, the patient was identified by name. Patient was theninformed that this was a telephone call only visit. The patient agreed to participate. Patient reported 8/10 pain despite using 10mg oxycodone and tramadol. She reports her pain makes ithard to roll in bed but she is otherwise able to complete her activities of daily living. Patient denies taking acetaminophen. Patient was educated to take acetaminophen scheduled and to alternate between oxycodone and tramadol (was taking both simultaneously). Patient reassured on hemoglobin levelpost op as well as level of pain post op. Patient would like to know liver pathology results once available. Patient also reported questions regarding wheezing, reports she still has her incentive spirometer. She was advised to continue using her incentive spirometer at least 10 times an hour. She denies, fever, chills, cough, or any infective symptoms. Advised patient to call back if any concerns, runs out of pain medications, or has uncontrollable pain. Total call duration was 6 minutes. Irvin Snider MD 01/12/2024 1:02 PM documented in this encounter Plan of Treatment Upcoming Encounters Date Type Department Care Team (Late st Contact Info) Description 01/25/2024 10:30 AM EDT [facility] [address] [place] [address] Adrián Recinos MD [address] [place] [address] Health Maintenance Due Date Last Done Comments [...] Not on filedocumented as of this encounter Advance Directives * Full Code (Latest Code Status on File) Date Activated Date Inactivated Comments 01/08/2024 11:01 AM 01/10/2024 6:46 PM This order r eflects the patients wishes and were consensually agreed upon. Question Answer Comments Discussion of Advance Directives occurred with: Patient Care Teams Senior Operations Analyst Relationship Specialty Start Date End Date Martha Torres CRNP [address] [facility] [address] Vargas [address] [place] [address], [place] [address] PCP - General Nurse Practitioner 02/22/18 documented as of this encounter
--- OUTSIDE RECORDS SUMMARY | 2024-01-13 12:08 | External Medical Summary ---
Author Name Unknown Address Unknown Organization K01:[facility] [place] [address] [facility] [address] [facility] [address] [place] [address] Laboratory Report Ordering Provider Test Date Status LISAELIAS 01/09/2024 06:37:00 Final Observation Date Value Abnormality Reference (Units ) Status BUN 01/09/2024 06:37:00 13 6-20 (mg/dL) Final Creatinine 01/09/2024 06:37:00 0.8 0.5-1.0 (mg/dL) Final Glomerular filtration rate/1.73 sq M.predicted [Volume Rate/Area] in Serum, Plasma or Blood by Creatinine-based formula (CKD-EPI) 01/09/2024 06:37:00 86 >=60 (mL/min) Final eGFR is calculated based on the CKD-EPI 2020 equation Sodium 01/09/2024 06:37:00 136 135-146 (m mol/L) Final Potassium 01/09/2024 06:37:00 4.2 3.5-5.1 (m mol/L) Final Cl 01/09/2024 06:37:00 105 98-107 (mm ol/L) Final CO2 01/09/2024 06:37:00 22 22-32 (mmo l/L) Final Anion gap 01/09/2024 06:37:00 9 7-15 (mmol /L) Final Glucose 01/09/2024 06:37:00 125 Above high normal 70 -120 (mg/dL) Final Albumin 01/09/2024 06:37:00 3.4 Below low normal 3.8 -5.0 (g/dL) Final AST (Aspartate aminotransferase) 01/09/2024 06:37:00 210 Above high normal 10-35 (U/L) Final Alk Phos 01/09/2024 06:37:00 62 35-130 (U/ L) Final Bilirubin, Total 01/09/2024 06:37:00 0.6 <=1 .2 (mg/dL) Final Calcium 01/09/2024 06:37:00 7.9 Below low normal 8.4 -10.2 (mg/dL) Final Protein 01/09/2024 06:37:00 5.9 Below low normal 6.0 -8.3 (g/dL) Final ALT (Alanine aminotransferase) 01/09/2024 06:37:00 269 Above high normal 10-35 (U/L) Final Performing Location [facility] [place] [address] [facility] [address]
--- OUTSIDE RECORDS SUMMARY | 2024-01-13 12:08 | External Medical Summary ---
Author Name Unknown Address Unknown Organization K01:[facility] - [address] [place] [address] Laboratory Report Ordering Provider Test Date Status ELIAS GONZALEZ 01/09/2024 06:37:00 Final Observation Date Value Abnormality Reference (Units ) Status Phosphate 01/09/2024 06:37:00 3.9 2.5-4.8 (m g/dL) Final Performing Location [facility] - [address] [place] [address]
--- OUTSIDE RECORDS SUMMARY | 2024-01-13 12:08 | External Medical Summary ---
Author Name Unknown Address Unknown Organization K01:LABORATORY [facility] - [address] [facility] [address] [place] [address] Laboratory Report Ordering Provider Test Date Status ELIER WOMACK 01/10/2024 08:57:00 Final Observation Date Value Abnormality Reference (Units ) Status BUN 01/10/2024 08:57:00 14 6-20 (mg/dL) Final Creatinine 01/10/2024 08:57:00 0.9 0.5-1.0 (mg/dL) Final Glomerular filtration rate/1.73 sq M.predicted [Volume Rate/Area] in Serum, Plasma or Blood by Creatinine-based formula (CKD-EPI) 01/10/2024 08:57:00 84 >=60 (mL/min) Final eGFR is calculated based on the CKD-EPI 2020 equation Sodium 01/10/2024 08:57:00 138 135-146 (m mol/L) Final Potassium 01/10/2024 08:57:00 3.7 3.5-5.1 (m mol/L) Final Cl 01/10/2024 08:57:00 106 98-107 (mm ol/L) Final CO2 01/10/2024 08:57:00 25 22-32 (mmo l/L) Final Anion gap 01/10/2024 08:57:00 7 7-15 (mmol /L) Final Glucose 01/10/2024 08:57:00 125 Above high normal 70 -120 (mg/dL) Final Calcium 01/10/2024 08:57:00 8.2 Below low normal 8.4 -10.2 (mg/dL) Final Performing Location LABORATORY [facility] - [address] [place] [address]
--- OUTSIDE RECORDS SUMMARY | 2024-01-13 12:09 | External Medical Summary ---
Author Name Unknown Address Unknown Organization K01:[facility] - [address] [place] [address] Laboratory Report Ordering Provider Test Date Status ELIAS GONZALEZ 01/08/2024 11:27:00 Final Observation Date Value Abnormality Reference (Units ) Status Phosphate 01/08/2024 11:27:00 3.4 2.5-4.8 (m g/dL) Final Performing Location [facility] - [address] [place] [address]
--- OUTSIDE RECORDS SUMMARY | 2024-01-13 12:09 | External Medical Summary ---
Author Name Unknown Address Unknown Organization : Laboratory Report Ordering Provider Test Date Status KARYN AMBROSE 01/08/2024 09:45:54 Final Observation Date Value Abnormality Reference (Units ) Status Glucose Point of Care 01/08/2024 09:45:54 188 Above high normal 70-120 (mg/dL) Final Performing Location
--- OUTSIDE RECORDS SUMMARY | 2024-01-13 12:09 | External Medical Summary ---
Author Name Unknown Address Unknown Organization K01:LABORATORY [facility] [place] [facility] - [address] [place] [address] Laboratory Report Ordering Provider Test Date Status TRACE CARDENAS 01/08/2024 07:13:45 Final Observation Date Value Abnormality Reference (Units ) Status ABO 01/08/2024 07:13:45 A Final RH 01/08/2024 07:13:45 Positive Final Performing Location [facility]ATORY [facility] [place] [facility] - [address] [place] [address]
--- OUTSIDE RECORDS SUMMARY | 2024-01-13 12:09 | External Medical Summary | Continuity of Care Document ---
Author Name Unknown Organization [address] Address [address] [place] [address] DR YUAN DAYTONHALEY [id number] Care Team Providers Care Export Packer Name Role Phone Martha Torres Primary Care Physician [phone] [id number] Date(s): 12/24/23 - 12/24/[address], [address] [place] [address] [phone] Encounter Diagnosis Body mass index [BMI] 29.0-29.9, adult(Discharge Diagnosis) - 12/24/23 Prediabetes(Discharge Diagnosis) - 12/24/23 Screening for hyperlipidemia(Discharge Diagnosis) - 12/24/23 Hypovitaminosis D(Discharge Diagnosis) - 12/24/23 Discharge Disposition: Home or Self Care Attending Physician: LATRICE Torres Shari A Referring Physician: LATRICE Torres Shari A Allergies, Adverse Reactions, Alerts No Known Allergies Immunizations Given and Recorded Vaccine Date Status Refusal Reason tetanus/diphtheria/pertuss, acel (Tdap) 07/18/22 G iven poliovirus vaccine, inactivated 07/18/22 Given SARS-CoV-2 (COVID-19) mRNA BNT-162b2 vax 1 06/24/21 Recorded SARS-CoV-2 (COVID-19) mRNA BNT-162b2 vax 09/13/20 Given SARS-CoV-2 (COVID-19) mRNA BNT-162b2 vax 08/23/20 Given 1Result Comment: 2021-07-18: Historical information-source unspecified Medications fluvoxaMINE 100 mg oral capsule, extended release Start: 09/11/17 11:55:00 AM EST, 2 cap, PO, Daily Start Date: 09/11/17 Status: Ordered glucometer Start: 12/16/21 3:15:00 PM EDT, See Instructions, Disp# 1 each, For BID testing Dx: R73.03, Pharmacy:[facility] Start Date: 12/16/21 Status: Ordered glucose test strips Start: 12/16/21 3:17:00 PM EDT, See Instructions, Disp# 100 each, Refills: 1, For twice daily testingDx: R73.03, Pharmacy: [facility] [place] [address] Start Date: 12/16/21 Status: Ordered lamoTRIgine 25 mg oral tablet 2 tab, PO, bid, take 3 tablets at hs, 2 in a.m. Start Date: 03/22/20 Status: Ordered lancets Start: 12/16/21 3:16:00 PM EDT, See Instructions, Disp# 100 each, Refills: 1, For BID testing Dx: R73.03, Pharmacy: [facility] Start Date: 12/16/21 Status: Ordered lansoprazole 30 mg oral delayed release capsule Start: 08/04/23 2:12:00 PM EST, See Instructions, Disp# 90 cap, Refills: 3, take 1 capsule by mouthonce daily, Pharmacy: [facility] #[id number] Start Date: 08/04/23 Status: Ordered meloxicam 15 mg oral tablet Start: 12/24/23 8:56:00 AM EDT, 1 tab, PO, Daily Start Date: 12/24/23 Status: Ordered MetFORMIN (Eqv-Glucophage XR) 500 mg oral tablet, extended release Start: 08/04/23 2:12:00 PM EST, 2 tab, PO, bid, Disp# 360 tab, Refills: 3, Pharmacy: [facility] #[id number] Start Date: 08/04/23 Stop Date: 07/29/24 Status: Ordered Vitamin D2 50,000 intl units (1.25 mg) oral capsule Start: 10/13/20 2:13:00 PM EST Start Date: 10/13/20 Status: Ordered Mental Status 12/24/23 Barriers to Learning one year None evide nt Mandatory Health Literacy Documentation Yes Health Literacy Communication Barriers N ever Primary Language Maltese Problem List Condition Confirmation Course Effective Dates Status Health St atus Informant Adenoma determined by biopsy of liver Confirmed Active Depression Confirmed Active Anorexia nervosa Confirmed Active SOB (shortness of breath) Confirmed Active Difficulty maintaining weight Confirmed Active Fatigue Confirmed Active GERD (gastroesophageal reflux disease) Confirmed Active Right shoulder injury Confirmed Active Anemia, iron deficiency 1 Confirmed 04/23/16 Active Light headedness Confirmed Active Benign liver cyst 2 Confirmed Active Swollen lymph nodes Confirmed Active Heavy menses Confirmed Active Mild obstructive sleep apnea 3 Confirmed Active Anxiety disorder Confirmed Active Osteopenia determined by x-ray Confirmed Active 1Heme eval 04/23/16, Dr. Benson. CSC and EGD normal. Suspected cause - Malabortion due to PPIs, Poor intake. Tx w/ IV iron. 2CT abd/pelvis (10/20/14) 3 cm hypodense focus on liver. Hemangioma or local fatty infiltration. 3Diagnosed on [employer] sleep study dated 05/02/2021 - sent for scanning Diagnosis Diagnosis Type Effective Dates Health Status Clinical Service Informant Body mass index [BMI] 29.0-29.9, adult Discharge Diagnosis 12/24/23 Non-Specified Prediabetes Discharge Diagnosis 12/24/23 Non-Specified Hypovitaminosis D Discharge Diagnosis 12/24/23 Non-Specified Screening for hyperlipidemia Discharge Diagnosis 12/24/23 Non-Specified Procedures Procedure Date Related Diagnosis Body Site Status Left shoulder 1 06/03/23 Completed Mammogram 2 12/18/22 Completed Mammogram 05/15/21 Completed Endometrial ablation 12/26/20 Comp leted Polypectomy 06/14/19 Completed Leg length 3 11/27/17 Completed IUD - Intrauterine device procedure 08/15/16 Completed Colonoscopy 04/21/16 Completed Upper GI endoscopy 04/21/16 Comple tona PFT 4 04/17/16 Completed Mammogram - screening 03/27/16 Com pleted delivery Complet ed Foot structure Completed [place] tooth Completed 1subacromial impingement-release [address] [place] [address] [facility], [address] [place] [address], [address] [place], [address] Mammography Report Patient: KEITH MALDONADO AAdmit Date: 12/17/22 MR#: [id number] Acct ID:[id number]: Date: 1975City Zip: [place] [address] Age: 47Location: MAMMO Sex: FRoom/Bed: Att Phy: Martha Torres CRNPDiagnosis: ASYMPTOMATIC Myrna Phy: Martha Torres CRNPService Date: 12/17/22 Fam Phy: Interpreting Phy: Marya Davidson MD Admit Phy: Ordering Phy: Martha Torres CRNP DICTATED BY: Marya Davidson MD cc: Martha Torres CRNP~ BILATERAL DIGITAL SCREENING MAMMOGRAM TOMOSYNTHESIS WITH SYNTHETIC 2D WITH CAD: 12/17/2022 CLINICAL HISTORY: Routine screening. Patient has no complaints. TECHNIQUE: Bilateral CC and MLO tomosynthesis images including synthesized 2D images (Intelligent 2D) were obtained. Current study was also evaluated with a Computer Aided Detection (CAD) system. COMPARISON: Comparison is made to exams dated: 05/15/2021 mammogram, 04/20/2020 mammogram, 04/18/2019 mammogram, 04/16/2018 mammogram, 04/10/2017 mammogram, and 03/27/2016 mammogram - [facility]. BREAST COMPOSITION: The breasts are heterogeneously dense, which may obscure small masses. FINDINGS: No suspicious masses, calcifications, or areas of architectural distortion are noted in either breast. There has been no significant interval change compared to prior exams. IMPRESSION: ACR BI-RADS CATEGORY 1: NEGATIVE There is no mammographic evidence of malignancy. A 1 year screening mammogram is recommended.(12/18/2023) The patient will receive written notification of the results. Some breast cancers are not detected with mammography. A negative mammographic report should not delay biopsy if a clinically suggestive mass is present. Marya Davidson M.D. /:12/17/2022 16:30:26 Postpartum Nurse: Radha Prabhakar RT(R)(M), [facility] 3Left lower extremity measures approximately 2 mm longer than the right. 4DLCO decreased. Vital Signs Most recent to oldest [Reference Range]: 1 Height 158 cm (12/24/23 8:57 AM) Patient Weight 73.7 kg (12/24/23 8:57 AM) Body Mass Index 29.52 kg/m2 (12/24/23 8:57 AM) Temperature [36.5-37.9 DegC] 36.5 DegC (12/24/23 8:57 AM) Heart Rate 81 bpm (12/24/23 8:57 AM) Respiratory Rate 16 br/min (12/24/23 8:57 AM) Blood Pressure 104/70mmHg (12/24/23 8:57 AM) Social History Social History Type Response Smoking Status Never smoked cigaret geeta Sex Female Patient Care team information Care Team Personnel Name: MD Lubna, Jacob Monk Position: Physician Member Role: Lifetime Relationship Address: Address: [address] [place] [address] Name: MD Sesar, Sylvia Min Position: Physician Member Role: Lifetime Relationship Address: Address: [address] [place] [id number] Name: LATRICE Torres Shari A Position: Nurse Pract - Family Med Member Role: Primary Care Provider Address: Address: [address] [place] [address] Care Team Related Persons Name: MARTIN NELSON Address: home [address] [place] [phone]
--- OUTSIDE RECORDS SUMMARY | 2024-01-13 12:09 | External Medical Summary ---
Author Name Unknown Address Unknown Organization : Laboratory Report Ordering Provider Test Date Status KARYN AMBROSE 01/08/2024 07:23:50 Final Observation Date Value Abnormality Reference (Units ) Status Glucose Point of Care 01/08/2024 07:23:50 98 70-120 (mg/dL) Final Performing Location
--- OUTSIDE RECORDS SUMMARY | 2024-01-13 12:09 | External Medical Summary ---
Author Name Unknown Address Unknown Organization : Laboratory Report Ordering Provider Test Date Status KARYN AMBROSE 01/08/2024 11:03:30 Final Observation Date Value Abnormality Reference (Units ) Status Glucose Point of Care 01/08/2024 11:03:30 167 Above high normal 70-120 (mg/dL) Final Performing Location
--- OUTSIDE RECORDS SUMMARY | 2024-01-13 12:09 | External Medical Summary ---
Author Name Unknown Address Unknown Organization K01:LABORATORY [facility] [place] [facility] - [address] [place] [address] Laboratory Report Ordering Provider Test Date Status TRACE CARDENAS 01/08/2024 07:13:45 Final Observation Date Value Abnormality Reference (Units ) Status ABO 01/08/2024 07:13:45 A Final RH 01/08/2024 07:13:45 Positive Final RED BLOOD CELL ANTIBODY SCREEN 01/08/2024 07:13:45 Negative Final SPECIMEN EXPIRATION DATE 01/08/2024 07:13:45 01/11/2024 23:59 Final Performing Location LABORATORY [facility] - [address] [place] [address]
[2024-01-13] MEDS: ACETAMINOPHEN 500 MG TAB PO ONE (12:24)
[2024-01-13] MEDS: KETOROLAC TROMETHAMINE 15 MG/ML VIAL IV ONE (12:25)
--- NOTE | 2024-01-13 13:36 | Surgery Progress Note ---
Date of Service January 13, 2024 Assessment & Plan (1) Postoperative abdominal pain: Plan: no acute surgical issues will s/o. call if any questions Admission and Anticipated Discharge Date Admission Date: January 13, 2024 Subjective pt seen. still with some upper abd pain but "definitely better than yesterday" Physical Exam Constitutional: WD/WN, vitals as above no acute distress and not ill appearing Eyes: PERRL, conjunctivae normal, anicteric sclerae EOM intact bilaterally ENMT: external ear and nose normal, oropharynx normal Ears: no hearing impairment Neck: trachea midline, no thyromegaly Respiratory: normal respiratory effort; no respiratory distress and does not use accessory muscles Cardiovascular: Rate/Rhythm: regular rate and regular rhythm Gastrointestinal (Abdomen): soft. mild expected incisional tenderness. no peritonitis. Skin: no rashes, warm and dry Psychiatric: Orientation: alert, oriented x 3 and cooperative Results & Data Vital Signs (Past 12 Hours) Vital Signs Temp Pulse Pulse Resp BP Pulse Ox O2 Del Method 01/13/24 07:00 68 01/13/24 06:36 36.9 C 62 16 122/78 95 Room Air 01/13/24 02:53 36.8 C 69 16 113/74 90 Room Air PG Care Time/CCT Total # of Minutes Spent Total Time Spent with Patient: Total time spent is greater than 50% in coordination of care (as documented) at patient's floor/unit and/or counseling patient: Coding Level of Care Code 13782 SUB INP/OBS CARE 1/25MIN Diagnoses Postoperative abdominal pain R10.9; G89.18
[2024-01-13] MEDS: ACETAMINOPHEN 325 MG TAB PO SCH (13:55)
[2024-01-13] MEDS: oxyCODONE HCL IR 5 MG TAB (IMMEDIATE RELEASE) PO PRN (16:07)
--- NOTE | 2024-01-13 17:54 | Discharge Summary ---
Date of Service January 13, 2024 Admission HPI Per Admitting Provider 48 y/o female with a PMHx of disordered eating, PTSD, anxiety/depression, hepatic adenoma with recent surgical resection presents with intractable RUQ abdominal pain. Patient with recent procedure a [facility] 01/07 with cholecystectomy and resection of hepatic adenoma. Of note the cholecystectomy was needed for better visualization of the adenoma. Patient with severe pain that started today. Prior to this had been eating/drinking/peeing/pooping without issue. CT significant for postsurgical changes in the right hepatic lobe and cholecystectomy. Case was discussed with surgery HALEY Damian. He recommended ED physician reach out to the performing institution. Of note, the treating emergency room physician did discuss with the surgical team at [facility] in [place], [place] where patient had her surgery. They have noted to him that no procedure or intervention is required and patient merely needs pain control. They have also noted that the use of NSAIDs is acceptable in her care. Upon my interview patient significant improved. No nausea, CP, SOB, fevers, chills, headache. Does have noisy breathing, which she attributes to "atelectasis". Admission Exam Per Admitting Provider Gen: well appearing patient in NAD HEENT: AT NC MMM Resp: no increased work of breathing CV: RRR no m/r/g clinically well perfused Abd: +BS, soft, non-distended MSK: no obvious deformities Skin: no rashes or bruising Neuro: alert and oriented Psych: appropriate mood and affect Principal Diagnosis Post-op pain, constipation Discharge Exam Constitutional: well-appearing, no acute distress HEENT: NCAT CV: extremities well-perfused, no LE edema Resp: no increased work of breathing GI: soft, nondistended, globally tender, worst in RUQ MSK: no gross deformities appreciated Skin: warm, dry, no rash appreciated Neuro: alert, oriented, no focal neurologic deficit appreciated Discharge Data Allergies Allergy/AdvReac Type Severity Reaction Status Date / Time No Known Allergies Allergy Verified 01/12/24 22:07 Consultations 01/12/24 23:06 ED Decision to Admit Stat 01/12/24 23:40 Consult General Surgery Routine Ordered Studies 01/12/24 20:52 CT abd pelvis IV con only Stat Hospital Course (1) Postoperative abdominal pain: Intractable pain at admission Pain well controlled on Tylenol around the clock, Toradol IV Oxycodone 5mg as needed for breakthrough pain Surgery Consult: No surgical intervention necessary Tolerated regular diet Large stool burden on CT despite loose bowel movements - suspect overflow Emphasized importance of bowel regimen for clean out - senna, colace, miralax goal of 2+ soft BMs daily (2) GERD (gastroesophageal reflux disease): Protonix IV while inpatient Home meds w/o change at discharge (3) Sleep apnea: Home CPAP (4) Depression: Continue home fluvoxamine and lamotrigine. (5) Anxiety: See above (6) Post traumatic stress disorder (PTSD): See above (7) Obsessive compulsive disorder: See above (8) Liver lesion, right lobe: s/p resection (9) Impaired fasting glucose: Last HbA1c 6.3%. Resume metformin at dc Total Time Total Time Spent Total Time Spent (In Minutes): <30 Discharge Plan Discharge Items Patient Disposition: Home - Self-Care Reason For Visit: INTRACTABLE PAIN Discharge Diagnosis: Post-op pain, constipation Activity: As commented below Activity Comment: Resume activity as instructed by your surgeon Non-emergency contact: Primary Care Provider and Surgeon Call non-emergency contact if: you have any medication questions, your pain is not controlled, your pain is worsening, your pain is unusual for you, you have a fever, your wound has increased redness, your wound has increased drainage and your wound pain has increased Follow-up/Referrals: Martha Torres CRNP [Primary Care Provider] - Diet: Regular Addtl Attending Provider Instructions: You were admitted to the hospital for pain. You were treated with pain medication and stool softeners. Pain: You should take Tylenol (acetaminophen) 500mg every 6 hours around the clock. You can also take Motrin (ibuprofen) 600mg every 6 hours as well, stagger them so that you are taking something every 3 hours. You also have oxycodone 5mg tabs that your surgeon gave you. Take one when the pain overwhelms the over the counter medications. Constipation: You had a very large stool burden on your CT scan obtained in our ER. Even if you are having a daily bowel movement, it may not be enough to comp letely elimated the build up. You should continue to take senna, colace, and miralax with a goal of two soft bowel movements daily. A discharge summary will be sent to your primary care physician to ensure continuity of care. Please bring this discharge summary with you to your next office appointment so that your provider can review it at that time. Follow-up appointments: Make a follow-up appointment with your PCP within the next week. It is very important that you follow up with them shortly after discharge from the hospital. Keep all your follow-up appointments as already scheduled. If you cannot make an appointment, notify your provider. Medications: Your medication list has been reviewed and reconciled upon discharge to ensure accuracy and continuity of care. An updated list of all your medications is included with your hospital discharge paperwork. Please review this list closely, and make note of any changes. Take your medications as instructed; do not skip a dose of your medicines. Make sure all of your doctors know every medicine you are taking (including [id number] medicines, vitamins, and supplements). Call your primary care provider before taking any new medicines (including [id number] medicines, vitamins, and supplements), because some of these may interact with your current medications, or may make your symptoms worse. Tell your primary care provider if you cannot afford your medications. CONTACT YOUR PRIMARY CARE PROVIDER if you experience any of the following: Continued pain after several days of the above detailed regimen Fever Difficulty following your treatment plan, or difficulty taking medications CALL 911 OR GO TO THE EMERGENCY DEPARTMENT if you experience any of the following: Sudden, severe abdominal pain or nausea/vomiting Severe chest pain, or chest pain that radiates (moves) to your jaw or arm Sudden, severe shortness of breath or difficulty breathing Thank you for allowing us to participate in your care. Pending Studies at Discharge: No Stand-Alone Forms: My [facility] Medications and DC Order Prescriptions: Continued lansoprazole [Prevacid] 30 mg capsule,delayed release(DR/EC) 30 mg PO Q OTHER DAY Rx Instructions: patient takes every other day sennosides [Senna Laxative] 8.6 mg tablet 17.2 mg PO QAM Rx Instructions: STARTED 01/10/24 FOR 14 DAYS lidocaine [Aspercreme (lidocaine)] 4 % adhesive patch,medicated 1 patch TOPICAL DAILY Rx Instructions: 01/10/24 FOR 7 DAYS tramadol 50 mg tablet 50 mg PO Q6H PRN (Reason: Pain) lamotrigine 25 mg tablet 25 mg PO QAM fluvoxamine 100 mg tablet See Rx Instructions .ROUTE .COMPLEX Rx Instructions: PER PT "TAKE 200 MG QAM, THEN 100 MG QPM". docusate sodium 100 mg capsule 100 mg PO BID Rx Instructions: 01/10/24 FOR 5 DAYS metformin 500 mg tablet extended release 24 hr 1,000 mg PO BID oxycodone 5 mg tablet 5 mg PO Q4H PRN (Reason: Pain) Discharge Orders: Discharge Order (Routine); Ordered 01/13/24 Ordered By: Nnamdi Arrington Admission Data Admit Date/Time: 01/13/24 00:03 Attending Provider: Ruben Ronquillo Admit Provider: Alexandra Barber Primary Care Provider: Martha Torres Other Providers: Jaki Donnelly; Constantino Clark Other Interventions: Discharge Summary Assessment (RN) Last Done: 01/13/24 18:00 Supervising Physician Co-Signing Physician Notes I personally examined the patient and verified all sharp points of history and ex am, discussed case, and agree with decision making with Dr Arrington pain still present, but better than before. Incisional, right upper abdominal, little bit diffuse. Vitals noted, in general she is awake and alert pleasant no distress. HEENT normocephalic atraumatic mucous membranes moist. Breathing unlabored no accessory muscle use good effort. Skin without rashes pallor or icterus. CT reviewed personally as well as reviewed with patient in the room. Postop abdominal painseems to be multifactorialprobably some liver bed pain from the resection, definitely appears to have incisional pain, and I strongly suspect some intestinal pain from constipation. When we saw her, we scheduled Tylenol give additional Toradol, discussed a regimen of Tylenol/ibuprofen at home with as needed oxycodone for breakthrough, as well as MiraLAX as a bowel regimen. When resident physician followed up later in the day, this regimen was working well enough that she felt up to going home (when we had discussed earlier, she was definitely hoping to feel well enough to get homeand thought she would bejust wanted to see how things played out over several hours and with more ambulation). Safe/stable for home. Otherwise as above. Resident Activity Tracking Resident Involvement: Resident Care Provided Care Provided: Adult Hospital Medicine
--- NOTE | 2024-01-13 18:52 | Billing Data ---
Date of Service January 13, 2024 Coding Level of Care Code 91924 IN/OBS DISCH 30 MIN/LESS
[2024-01-13] MEDS ORDERED: fluvoxaMINE MALEATE 50 MG TAB PO SCH (21:00)
== END 2024-01-13 18:16 | disposition home or self-care (01) ==
LOC: ED 20:23 → INTOOBSV 01-13 00:03 → SUATTDRO 01-13 00:03 → 2S 01-13 00:03